=== PATIENT | female | born 2000 | race Caucasian/White ===

== ENCOUNTER 2019-07-28 01:03 | Inpatient (IN) | payer OTHER ==
[2019-07-28] MEDS ORDERED: Penicillin G Potassium 5,000,000 Unit Vial ONE (01:09)
[2019-07-28] MEDS ORDERED: Ondansetron 4 MG/2 ML SDV IV PRN (01:12)
[2019-07-28] MEDS ORDERED: Sodium Chloride 0.9% 10 ML Syringe FLUSH PRN (01:12)
[2019-07-28] MEDS ORDERED: Misoprostol 400 MCG (4 X 100 MCG TAB) RECTAL PRN (01:12)
[2019-07-28] MEDS ORDERED: Methylergonovine 0.2 MG/1 ML Amp IM PRN (01:12)
[2019-07-28] MEDS ORDERED: Lactated Ringers 500 ML IV ONE (01:12)
[2019-07-28] MEDS ORDERED: Penicillin G Potassium 5 MILLUNITS in Sodium Chloride 0.9% 100 ML IV ONE (01:12)
[2019-07-28] MEDS ORDERED: Tranexamic Acid 1,000 MG in Sodium Chloride 0.9% 100 ML IV PRN (01:12)
[2019-07-28] MEDS ORDERED: Lidocaine 1% 30 ML SDV INJECT PRN (01:12)
[2019-07-28] MEDS ORDERED: Carboprost Tromethamine 250 MCG/1 ML Amp IM PRN (01:12)
[2019-07-28] MEDS: Lactated Ringers 1,000 ML IV SCH ×3 (01:15→09:07)
[2019-07-28] MEDS ORDERED: Oxytocin/Normal Saline 30 UNIT/500 ML BAG IV SCH ×2 (01:15→09:45)
--- NOTE | 2019-07-28 01:22 | PCM.LDHP ---
L&D History of Present Illness - General Date of Service: 07/28/19 Admit Problem/Dx: Patient Status Order with Admit Dx/Problem 07/28/19 01:12 Patient Status [ADT] Routine Admission Diagnosis/Problem Admission Diagnosis/Problem Normal labor - History of Present Illness Introduction:: Subjective Patient is a 18yo at 40w0d gestation who presents today for uterine contractions. She has a past medical and obstetric history as below significant for GBS+, tobacco use during . Movements are present. Vaginal discharge is present, blood tinged. Contractions are every 3-5 minutes. She had good care. Past Obstetric History: -prior miscarriage at 12w GA Past Medical History: -rubella non immune status -tobacco use Past Surgical History: -no surgical hx Family History: -no pertinent family history Social History: -Works at [employer] in [place]. Engaged to [employer]. Renting a 2-bedroom apartment in [place] together. Medications Prior to Admission: - vitamins Allergies: -Tuberculin Review of Systems Constitutional: negative for chills and fevers HEENT: negative for vision changes, headache, nasal congestion, cough, sore throat Respiratory: negative for cough, sputum and shortness of breath Cardiovascular: negative for chest pain, chest pressure/discomfort, lower extremity edema and palpitations Gastrointestinal: + abdominal cramping and contractions, negative for epigastric pain, change in bowel habits, melena, nausea and vomiting Genitourinary: negative for dysuria, frequency and hematuria Integument/breast: negative for pruritus and rash Hematologic/lymphatic: negative for bleeding and easy bruising Objective: General: alert, cooperative, no distress Skin: no rash or abnormalities Lungs: clear to auscultation bilaterally Heart: regular rate, S1, S2 normal, no murmur, click, rub or gallop Abdomen: gravid, non-tender, non distended Extremities: no edema Cervix: per RN exam Dilation: 4 Effacement: 100 Station: -1 Presentation: vertex Membranes: intact Monitoring: FHT:135 BPM, moderate variability, accelerations are present, absent decelerations, cat 1 Contractions: 3 to 5 minutes. Ultrasound: Last Ultrasound (03/28/19): Placenta posterior, Presentation cephalic, TINO normal OB Labs: A+, rubella non immune, syphylis neg, HIV neg, HBV negative, GC negative Assessment 18y o at 40w0d IUP with GBS + status in normal labor Plan EFM/toco and monitor for progress of labor. Penicillin for GBS status AROM when 2nd dose of pitocin is in. Intrathecal analgesia as needed. Expectant management, anticipate vaginal delivery. Dahlia Wilson MD PGY-3 - Related Data Allergies/Adverse Reactions: Allergies Allergy/AdvReac Type Severity Reaction Status Date / Time No Known Drug Intolerances Allergy Other Verified 07/28/19 01:21 mold Allergy Nausea and Uncoded 07/28/19 01:21 Vomiting tb test Allergy Hives Uncoded 07/28/19 01:21 Home Medications: Home Meds Vit with Ca/FA/Iron [ Plus Iron] 1 tab PO DAILY 06/19/19 [ History] Past Medical History - Past Health History Medical/Surgical History: Denies Medical/Surgical History HEENT History: Reports: None Cardiovascular History: Reports: None Respiratory History: Reports: None Gastrointestinal History: Reports: None Genitourinary History: Reports: None 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: , 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 Other OB/BYN History: SAB 04/27/2018 Musculoskeletal History: Reports: None Neurological History: Reports: None Psychiatric History: Reports: None Endocrine/Metabolic History: Reports: None Hematologic History: Reports: None Immunologic History: Reports: None Oncologic (Cancer) History: Reports: None Dermatologic History: Reports: None - Infectious Disease History Infectious Disease History: Reports: None - Past Surgical History Head Surgeries/Procedures: Reports: None Cardiovascular Surgical History: Reports: None Respiratory Surgical History: Reports: None GI Surgical History: Reports: None Female Surgical History: Reports: None Neurological Surgical History: Reports: None Social & Family History - Family History Family Medical History: Noncontributory - Caffeine Use Caffeine Use: Reports: None H&P Review of Systems - Review of Systems: Review Of Systems: See Below L&D Exam - Exam Exam: See Below - Patient Data Result Diagrams: 07/28/19 01:21 - Problem List (1) Normal labor SNOMED Code(s): 11004435 ICD Code: O80 - ENCOUNTER FOR FULL-TERM UNCOMPLICATED DELIVERY; Z37.9 - OUTCOME OF DELIVERY, UNSPECIFIED Status: Acute Current Visit: Yes Problem List Initiated/Reviewed/Updated: Yes Orders Last 24hrs: Active Orders 24 hr Category Date Time Status Patient Status [ADT] Routine ADT 07/28/19 01:12 Ordered Communication Order [RC] ASDIRECTED Care 07/28/19 01:12 Ordered Heart Tones [RC] PER UNIT ROUTINE Care 07/28/19 01:12 Ordered Notify Provider Vital Signs OB [RC] ASDIRECTED Care 07/28/19 01:12 Ordered Notify Provider [RC] PRN Care 07/28/19 01:12 Ordered POC Labs [RC] ASDIRECTED Care 07/28/19 01:12 Ordered Pump Management, Intrathecal [RC] ASDIRECTED Care 07/28/19 01:12 Ordered Up ad Marcela [RC] ASDIRECTED Care 07/28/19 01:12 Ordered Vital Signs [RC] PER UNIT ROUTINE Care 07/28/19 01:12 Ordered CBC W/O DIFF,HEMOGRAM [HEME] Routine Lab 07/28/19 01:12 Ordered Acetaminophen [Tylenol] Med 07/28/19 01:12 Ordered 650 mg PO Q4H PRN Carboprost Tromethamine [Hemabate DS] Med 07/28/19 01:12 Ordered 250 mcg IM ASDIRECTED PRN Lactated Ringers @ 125 MLS/HR(1000ml) Med 07/28/19 01:15 Ordered Lactated Ringers [Ringers, Lactated] 1,000 ml IV ASDIRECTED Lactated Ringers [Ringers, Lactated] 500 ml Med 07/28/19 01:12 Ordered IV .BOLUS Lidocaine 1% [Xylocaine-MPF 1%] Med 07/28/19 01:12 Ordered 30 ml INJECT ASDIRECTED PRN Methylergonovine [Methergine] Med 07/28/19 01:12 Ordered 0.2 mg IM ASDIRECTED PRN Ondansetron [Zofran] Med 07/28/19 01:12 Ordered 4 mg IV Q4H PRN Oxytocin 30 Units in NS @ 2 MUNITS/MIN(500ml) Med 07/28/19 01:15 Ordered Oxytocin/Normal Saline [Pitocin in NS 30 UNIT/500 ML] 30 unit in 500 ml IV TITRATE Penicillin G Potassium [Pfizerpen] 3 millunits Med 07/28/19 05:00 Ordered Sodium Chloride 0.9% [Normal Saline] 100 ml IV Q4HR Penicillin G Potassium [Pfizerpen] 5 millunits Med 07/28/19 01:12 Ordered Sodium Chloride 0.9% [Normal Saline] 100 ml IV ONETIME Sodium Chloride 0.9% [Saline Flush] Med 07/28/19 01:12 Ordered 10 ml FLUSH ASDIRECTED PRN Tranexamic Acid [Cyklokapron] 1,000 mg Med 07/28/19 01:12 Ordered Sodium Chloride 0.9% [Normal Saline] 100 ml IV ONETIME miSOPROStol [Cytotec] Med 07/28/19 01:12 Ordered 800 mcg RECTAL ASDIRECTED PRN Saline Lock Insert [OM.PC] Routine Oth 07/28/19 01:12 Ordered Resuscitation Status Routine Resus Stat 07/28/19 01:12 Ordered Medication Orders Acetaminophen (Tylenol) 650 mg PO Q4H PRN PRN Reason: Pain (Mild 1-3) and fever Carboprost Tromethamine (Hemabate Ds) 250 mcg IM ASDIRECTED PRN PRN Reason: HEMORRHAGE Lactated Ringer's (Ringers, Lactated) 500 mls @ 999 mls/hr IV .BOLUS ONE Stop: 07/28/19 01:42 Lactated Ringer's (Ringers, Lactated) 1,000 mls @ 125 mls/hr IV ASDIRECTED OLINDA Oxytocin/Sodium Chloride (Pitocin In Ns 30 Unit/500 Ml) 30 unit in 500 mls @ 2 mls/hr IV TITRATE OLINDA; Protocol Penicillin G Potassium 5 (millunits/ Sodium Chloride) 100 mls @ 200 mls/hr IV ONETIME ONE Stop: 07/28/19 01:41 Penicillin G Potassium 3 (millunits/ Sodium Chloride) 100 mls @ 200 mls/hr IV Q4HR OLINDA Tranexamic Acid 1,000 mg/ (Sodium Chloride) 110 mls @ 660 mls/hr IV ONETIME PRN PRN Reason: Bleeding Lidocaine HCl (Xylocaine-Mpf 1%) 30 ml INJECT ASDIRECTED PRN PRN Reason: Perineal Repair Methylergonovine Maleate (Methergine) 0.2 mg IM ASDIRECTED PRN PRN Reason: Hemorrhage Misoprostol (Cytotec) 800 mcg RECTAL ASDIRECTED PRN PRN Reason: Hemorrhage Ondansetron HCl (Zofran) 4 mg IV Q4H PRN PRN Reason: Nausea/Vomiting Sodium Chloride (Saline Flush) 10 ml FLUSH ASDIRECTED PRN PRN Reason: Keep Vein Open
[2019-07-28] MEDS ORDERED: EPINEPHrine 1 MG/1 ML Amp ONE ×2 (03:41→08:36)
[2019-07-28] MEDS ORDERED: fentaNYL 100 MCG/2 ML SDV ONE ×2 (03:41→08:36)
[2019-07-28] MEDS ORDERED: Sodium Bicarbonate 4.2% 2.5 MEQ/5 ML SDV ONE ×2 (03:42→08:36)
--- NOTE | 2019-07-28 04:04 | PCM.SN ---
- Free Text/Narrative Note: Intrathecal , sittimg position, sterile prep and drape. 1% lidocaine w bicarb for skinwheal to L2 L3 interspace, introducer, 24 ga pencan x 1. Pos CSF, neg heme, neg parasthesia. 0.1 ml pf 1:1000 epi, 15 mcg pf sufenta, 35 mcg pf fentanyl, 0.4 ml pf ns and 6 mg of 0.75% pf bupivacaine injected after CSF aspiration. Pt to L lateral position. Procedure time 4470 to 0414
[2019-07-28] MEDS: Penicillin G Potassium 3 MILLUNITS in Sodium Chloride 0.9% 100 ML IV SCH ×4 (05:18→16:12)
--- NOTE | 2019-07-28 07:02 | PCM.SN ---
- Free Text/Narrative Note: Labor and Delivery Labor Progress Note S: Patient is comfortable with intrathecal in place. She denies any concerns. O: BP-107/67, P-72 Alert and oriented, NAD Cervix: 6/100/-1 EFM/toco: 130 BPM, moderate variability, accelerations are present,absent decelerations, cat 1 Contractions q 3-4 minutes A: 18 y.o. female at 40w0d admitted for normal labor P: AROM for clear fluid Continue current cares Plan was discussed with Dr. Brown The patient was comfortable with the above plan and all questions were answered. Dahlia Wislon MD PGY-3 [employer]
--- NOTE | 2019-07-28 08:51 | PCM.SN ---
- Free Text/Narrative Note: Intrathecal , sittimg position, sterile prep and drape. 1% lidocaine w bicarb for skinwheal to L2 L3 interspace, introducer, 24 ga pencan x 1. Pos CSF, neg heme, neg parasthesia. pf 1:1000 epi wash, 15 mcg pf sufenta, 35 mcg pf fentanyl, 0.4 ml pf ns and 6 mg of 0.75% pf bupivacaine injected after CSF aspiration. Pt to L lateral position. Procedure time 0830 to 0900
[2019-07-28] MEDS ORDERED: Measles, Mumps & Rubella Vaccine 0.5 ML SDV SUBCUT ONE (12:33)
[2019-07-28] MEDS ORDERED: Simethicone 80 MG Tab.Chew PO PRN (12:33)
[2019-07-28] MEDS ORDERED: Benzocaine/Menthol 20%-0.5% Spray 56 GM Canister TOP PRN (12:33)
--- NOTE | 2019-07-28 12:43 | PCM.DEL ---
L & D Note - General Info Date of Service: 07/28/19 Mother's Due Date: 07/28/19 - Delivery Note Labor: Augmented by Oxytocin Delivery Outcome: Livebirth Infant Delivery Method: Spontaneous Vaginal Delivery-Single Delivery Mode: Vacuum Extraction Presentation: Left Occiput Transverse (LOT) Nuchal Cord: None Anesthesia Type: Intrathecal Amniotic Fluid Description: Meconium Stained Episiotomy Type: None Laceration: 1st Degree Suture type: Vicryl Suture size: 4-0 Placenta: Intact, Spontaneous Cord: 3 Vessels Resuscitation Needed: Yes [place]: Suctioned, Bulb Syringe, Stimulated, Warmed, Warmer Used Provider: Leonie Saucedo Delivery Comments (Free Text/Narrative):: Diandra Hamilton is a 18 y.o. at 40w0d who presented with uterine contractions. Category 1 tracing on admission. She was dilated to 4 cm on admission. Her labor was augmented with pitocin. She requested and received intrathecal. Artifical rupture of membranes at 6 cm with clear fluid. She progressed to full cervical dilation. She delivered a liveborn female from the OT position, with the help of vacuum extraction due to maternal exhaustion over 1st degree perineal laceration in the midline. Infant was stunned and brought to warmer for resuscitation. she was suctioned twice and stimulated, also given blow by O2. She did improve with these measures and was able to be returned to mothers chest. Placenta delivered spontaneously intact with a 3 vessel cord. IV Pitocin was started shortly after delivery of placenta. EBL 200 mL. 1st degree perineal laceration repaired with 4-0 Vicryl suture. Hemostasis confirmed. Mother and doing well. - General Info Date of Service: 07/28/19 - Patient Data Vitals - Most Recent: Last Vital Signs Temp 98.6 F 07/28/19 05:30 Pulse 79 07/28/19 06:45 Resp 18 07/28/19 06:45 BP 125/72 07/28/19 06:45 Pulse Ox 98 07/28/19 05:30 Weight - Most Recent: 215 lb Lab Results Last 24 Hours: Laboratory Results - last 24 hr 07/28/19 Range/Units 01:21 WBC 15.7 H (5.0-10.0) 10^3/uL RBC 4.53 (4.2-5.4) 10^6/uL Hgb 12.7 (12.0-16.0) g/dL Hct 38.3 (37.0-47.0) % MCV 84.5 (80-100) fL MCH 28.0 (27.0-34.0) pg MCHC 33.2 (33.0-35.0) g/dL Plt Count 234 (150-450) 10^3/uL Med Orders - Current: Current Medications Acetaminophen (Tylenol) 650 mg PO Q4H PRN PRN Reason: Pain (Mild 1-3) and fever Carboprost Tromethamine (Hemabate Ds) 250 mcg IM ASDIRECTED PRN PRN Reason: HEMORRHAGE Lactated Ringer's (Ringers, Lactated) 1,000 mls @ 125 mls/hr IV ASDIRECTED [facility] Last Admin: 07/28/19 09:07 Dose: 125 mls/hr Tranexamic Acid 1,000 mg/ (Sodium Chloride) 110 mls @ 660 mls/hr IV ONETIME PRN PRN Reason: Bleeding Penicillin G Potassium 3 (millunits/ Sodium Chloride) 100 mls @ 200 mls/hr IV Q4H [facility] Last Admin: 07/28/19 09:06 Dose: 200 mls/hr Oxytocin/Sodium Chloride (Pitocin In Ns 30 Unit/500 Ml) 30 unit in 500 mls @ 2 mls/hr IV TITRATE [facility]; Protocol Last Admin: 07/28/19 07:38 Dose: 2 munits/min, 2 mls/hr Lidocaine HCl (Xylocaine-Mpf 1%) 30 ml INJECT ASDIRECTED PRN PRN Reason: Perineal Repair Methylergonovine Maleate (Methergine) 0.2 mg IM ASDIRECTED PRN PRN Reason: Hemorrhage Misoprostol (Cytotec) 800 mcg RECTAL ASDIRECTED PRN PRN Reason: Hemorrhage Ondansetron HCl (Zofran) 4 mg IV Q4H PRN PRN Reason: Nausea/Vomiting Last Admin: 07/28/19 03:25 Dose: 4 mg Sodium Chloride (Saline Flush) 10 ml FLUSH ASDIRECTED PRN PRN Reason: Keep Vein Open Discontinued Medications Epinephrine HCl (Adrenalin) Confirm Administered Dose 1 mg .ROUTE .[facility]-MED ONE Stop: 07/28/19 03:42 Last Admin: 07/28/19 05:57 Dose: Not Given Epinephrine HCl (Adrenalin) Confirm Administered Dose 1 mg .ROUTE .STK-MED ONE Stop: 07/28/19 08:37 Last Admin: 07/28/19 08:40 Dose: Not Given Fentanyl (Sublimaze) Confirm Administered Dose 100 mcg .ROUTE .STK-MED ONE Stop: 07/28/19 03:42 Last Admin: 07/28/19 05:57 Dose: Not Given Fentanyl (Sublimaze) Confirm Administered Dose 100 mcg .ROUTE .STK-MED ONE Stop: 07/28/19 08:37 Last Admin: 07/28/19 08:40 Dose: Not Given Lactated Ringer's (Ringers, Lactated) 500 mls @ 999 mls/hr IV .BOLUS ONE Stop: 07/28/19 01:42 Oxytocin/Sodium Chloride (Pitocin In Ns 30 Unit/500 Ml) 30 unit in 500 mls @ 2 mls/hr IV TITRATE OLINDA; Protocol Penicillin G Potassium 5 (millunits/ Sodium Chloride) 100 mls @ 200 mls/hr IV ONETIME ONE Stop: 07/28/19 01:41 Last Admin: 07/28/19 01:15 Dose: 200 mls/hr Penicillin G Potassium 3 (millunits/ Sodium Chloride) 100 mls @ 200 mls/hr IV Q4HR OLINDA Last Admin: 07/28/19 08:52 Dose: Not Given Penicillin G Potassium (Pfizerpen) Confirm Administered Dose 5 millunits .ROUTE .STK-MED ONE Stop: 07/28/19 01:10 Last Admin: 07/28/19 01:22 Dose: Not Given Sodium Bicarbonate (Sodium Bicarbonate 4.2%) Confirm Administered Dose 2.5 meq .ROUTE .STK-MED ONE Stop: 07/28/19 03:43 Last Admin: 07/28/19 05:58 Dose: Not Given Sodium Bicarbonate (Sodium Bicarbonate 4.2%) Confirm Administered Dose 2.5 meq .ROUTE .STK-MED ONE Stop: 07/28/19 08:37 Last Admin: 07/28/19 08:40 Dose: Not Given Sufentanil Citrate (Sufenta) Confirm Administered Dose 50 mcg .ROUTE .STK-MED ONE Stop: 07/28/19 03:42 Last Admin: 07/28/19 05:58 Dose: Not Given Sufentanil Citrate (Sufenta) Confirm Administered Dose 50 mcg .ROUTE .STK-MED ONE Stop: 07/28/19 08:37 Last Admin: 07/28/19 08:40 Dose: Not Given - Problem List & Annotations (1) Normal labor SNOMED Code(s): 94878244 Code(s): O80 - ENCOUNTER FOR FULL-TERM UNCOMPLICATED DELIVERY; Z37.9 - OUTCOME OF DELIVERY, UNSPECIFIED Status: Acute Current Visit: Yes - Problem List Review Problem List Initiated/Reviewed/Updated: Yes - My Orders Last 24 Hours: My Active Orders 07/28/19 01:12 Patient Status [ADT] Routine Communication Order [RC] ASDIRECTED Notify Provider Vital Signs OB [RC] ASDIRECTED Notify Provider [RC] PRN POC Labs [RC] ASDIRECTED Pump Management, Intrathecal [RC] ASDIRECTED Up ad Marcela [RC] ASDIRECTED Vital Signs [RC] PER UNIT ROUTINE Acetaminophen [Tylenol] 650 mg PO Q4H PRN Carboprost Tromethamine [Hemabate DS] 250 mcg IM ASDIRECTED PRN Lidocaine 1% [Xylocaine-MPF 1%] 30 ml INJECT ASDIRECTED PRN Methylergonovine [Methergine] 0.2 mg IM ASDIRECTED PRN Ondansetron [Zofran] 4 mg IV Q4H PRN Sodium Chloride 0.9% [Saline Flush] 10 ml FLUSH ASDIRECTED PRN Tranexamic Acid [Cyklokapron] 1,000 mg Sodium Chloride 0.9% [Normal Saline] 100 ml IV ONETIME miSOPROStol [Cytotec] 800 mcg RECTAL ASDIRECTED PRN Saline Lock Insert [OM.PC] Routine Resuscitation Status Routine 07/28/19 01:15 Lactated Ringers [Ringers, Lactated] 1,000 ml IV ASDIRECTED 07/28/19 09:00 Penicillin G Potassium [Pfizerpen] 3 millunits Sodium Chloride 0.9% [Normal Saline] 100 ml IV Q4H
[2019-07-28] MEDS: Ibuprofen 800 MG Tab PO PRN ×2 (15:16→23:26)
[2019-07-28] MEDS: Acetaminophen 325 MG Tab PO PRN (19:35)
[2019-07-28] MEDS: Docusate Sodium 100 MG Cap PO PRN (19:35)
[2019-07-29] MEDS: Docusate Sodium 100 MG Cap PO PRN ×2 (10:09→19:25)
[2019-07-29] MEDS: Ibuprofen 800 MG Tab PO PRN ×2 (10:09→19:24)
[2019-07-29] MEDS: Prenatal Multivitamin with Calcium/Folic Acid/Iron Tab PO SCH (10:09)
[2019-07-29] MEDS: Ferrous Sulfate 325 MG Tab PO SCH (10:11)
--- NOTE | 2019-07-29 11:37 | PCM.PNPP ---
- General Info Date of Service: 07/29/19 - Patient Data Vital Signs - Most Recent: Last Vital Signs Temp 98.6 F 07/28/19 20:00 Pulse 131 H 07/28/19 20:00 Resp 18 07/28/19 20:00 BP 131/68 07/28/19 20:00 Pulse Ox 99 07/28/19 20:00 Weight - Most Recent: 215 lb Med Orders - Current: Current Medications Acetaminophen (Tylenol) 650 mg PO Q4H PRN PRN Reason: Pain (Mild 1-3) and fever Last Admin: 07/28/19 19:35 Dose: 650 mg Benzocaine/Menthol (Dermoplast Pain Relief [place]) 0 gm TOP Q4H PRN PRN Reason: Perineal comfort measures Last Admin: 07/28/19 15:16 Dose: 1 spray Carboprost Tromethamine (Hemabate Ds) 250 mcg IM ASDIRECTED PRN PRN Reason: HEMORRHAGE Docusate Sodium (Colace) 100 mg PO BID PRN PRN Reason: Constipation Last Admin: 07/29/19 10:09 Dose: 100 mg Ferrous Sulfate (Ferrous Sulfate) 325 mg PO WITHBREAKFAST OLINDA Last Admin: 07/29/19 10:11 Dose: 325 mg Tranexamic Acid 1,000 mg/ (Sodium Chloride) 110 mls @ 660 mls/hr IV ONETIME PRN PRN Reason: Bleeding Oxytocin/Sodium Chloride (Pitocin In Ns 30 Unit/500 Ml) 30 unit in 500 mls @ 2 mls/hr IV TITRATE OLINDA; Protocol Last Titration: 07/28/19 15:00 Dose: 0 mls/hr Ibuprofen (Motrin) 800 mg PO Q8H PRN PRN Reason: Mild Pain or Fever Last Admin: 07/29/19 10:09 Dose: 800 mg Methylergonovine Maleate (Methergine) 0.2 mg IM ASDIRECTED PRN PRN Reason: Hemorrhage Misoprostol (Cytotec) 800 mcg RECTAL ASDIRECTED PRN PRN Reason: Hemorrhage Ondansetron HCl (Zofran) 4 mg IV Q4H PRN PRN Reason: Nausea/Vomiting Last Admin: 07/28/19 03:25 Dose: 4 mg Prenat Multivit/[place]lderon/Iron/Folic Ac ( Plus Iron) 1 each PO DAILY OLINDA Last Admin: 07/29/19 10:09 Dose: 1 each Simethicone (Simethicone) 80 mg PO Q4H PRN PRN Reason: Gas Sodium Chloride (Saline Flush) 10 ml FLUSH ASDIRECTED PRN PRN Reason: Keep Vein Open Discontinued Medications Epinephrine HCl (Adrenalin) Confirm Administered Dose 1 mg .ROUTE .STK-MED ONE Stop: 07/28/19 03:42 Last Admin: 07/28/19 05:57 Dose: Not Given Epinephrine HCl (Adrenalin) Confirm Administered Dose 1 mg .ROUTE .STK-MED ONE Stop: 07/28/19 08:37 Last Admin: 07/28/19 08:40 Dose: Not Given Fentanyl (Sublimaze) Confirm Administered Dose 100 mcg .ROUTE .STK-MED ONE Stop: 07/28/19 03:42 Last Admin: 07/28/19 05:57 Dose: Not Given Fentanyl (Sublimaze) Confirm Administered Dose 100 mcg .ROUTE .STK-MED ONE Stop: 07/28/19 08:37 Last Admin: 07/28/19 08:40 Dose: Not Given Lactated Ringer's (Ringers, Lactated) 500 mls @ 999 mls/hr IV .BOLUS ONE Stop: 07/28/19 01:42 Last Admin: 07/28/19 16:12 Dose: Not Given Lactated Ringer's (Ringers, Lactated) 1,000 mls @ 125 mls/hr IV ASDIRECTED OLINDA Last Admin: 07/28/19 09:07 Dose: 125 mls/hr Oxytocin/Sodium Chloride (Pitocin In Ns 30 Unit/500 Ml) 30 unit in 500 mls @ 2 mls/hr IV TITRATE OLINDA; Protocol Penicillin G Potassium 5 (millunits/ Sodium Chloride) 100 mls @ 200 mls/hr IV ONETIME ONE Stop: 07/28/19 01:41 Last Admin: 07/28/19 01:15 Dose: 200 mls/hr Penicillin G Potassium 3 (millunits/ Sodium Chloride) 100 mls @ 200 mls/hr IV Q4HR [facility] Last Admin: 07/28/19 08:52 Dose: Not Given Penicillin G Potassium 3 (millunits/ Sodium Chloride) 100 mls @ 200 mls/hr IV Q4H [facility] Last Admin: 07/28/19 16:12 Dose: Not Given Lidocaine HCl (Xylocaine-Mpf 1%) 30 ml INJECT ASDIRECTED PRN PRN Reason: Perineal Repair Measles/Mumps/Rubella Vaccine Live (M-M-R Ii Vaccine) 0.5 ml SUBCUT .ONCE ONE Stop: 07/28/19 12:34 Last Admin: 07/28/19 19:36 Dose: 0.5 ml Penicillin G Potassium (Pfizerpen) Confirm Administered Dose 5 millunits .ROUTE .STK-MED ONE Stop: 07/28/19 01:10 Last Admin: 07/28/19 01:22 Dose: Not Given Sodium Bicarbonate (Sodium Bicarbonate 4.2%) Confirm Administered Dose 2.5 meq .ROUTE .STK-MED ONE Stop: 07/28/19 03:43 Last Admin: 07/28/19 05:58 Dose: Not Given Sodium Bicarbonate (Sodium Bicarbonate 4.2%) Confirm Administered Dose 2.5 meq .ROUTE .STK-MED ONE Stop: 07/28/19 08:37 Last Admin: 07/28/19 08:40 Dose: Not Given Sufentanil Citrate (Sufenta) Confirm Administered Dose 50 mcg .ROUTE .STK-MED ONE Stop: 07/28/19 03:42 Last Admin: 07/28/19 05:58 Dose: Not Given Sufentanil Citrate (Sufenta) Confirm Administered Dose 50 mcg .ROUTE .STK-MED ONE Stop: 07/28/19 08:37 Last Admin: 07/28/19 08:40 Dose: Not Given - Infant Interaction Support Person: Significant Other - Recovery Exam Fundal Tone: Firm Fundal Level: 1 Fingerbreadths Below Umbilicus Fundal Placement: Midline Lochia Amount: Scant Lochia Color: Rubra/Red Perineum Description: Intact, Minimal Bruising/Swelling Episiotomy/Laceration: Approximated Bladder Status: Voiding - Problem List & Annotations (1) Normal labor SNOMED Code(s): 73502475 Code(s): O80 - ENCOUNTER FOR FULL-TERM UNCOMPLICATED DELIVERY; Z37.9 - OUTCOME OF DELIVERY, UNSPECIFIED Status: Acute Current Visit: Yes
--- NOTE | 2019-07-29 13:14 | PCM.SN ---
- Free Text/Narrative Note: Obstetrics Progress Note Post Day Number 1 Patient: Diandra Hamilton Admit Date: 07/27/19 Today's Date: 07/29/19 Subjective: Diandra Hamilton is ambulating, voiding, tolerating regular diet all without difficulty. She reports her lochia is moderate. She is . She is up and ambulating well, tolerating PO intake and using the bathroom, good bowel sounds and passing gas, no bowel movement at this time. She has no complaints. Objective: Last Vital Signs Temp 98.6 F 07/28/19 20:00 Pulse 131 H 07/28/19 20:00 Resp 18 07/28/19 20:00 BP 131/68 07/28/19 20:00 Pulse Ox 99 07/28/19 20:00 General: alert, no distress Lungs: CTAB, no respiratory distress Heart: RRR, no murmurs Uterus is firm non tender at 1 cm below the umbilicus. Lower extremities are nontender and have trace edema. Skin: is warm and dry, well perfused no visible lesions RPR: nonreactive Rubella: not immune GBS: positive Hbs: negative Assessment/Plan: Patient is stable and comfortable, no acute distress. She is day number one status post VAVD. Continue with advancing routine post cares. Plan for discharge tomorrow Dahlia Wilson MD
[2019-07-30] MEDS: Ibuprofen 800 MG Tab PO PRN (03:07)
[2019-07-30] MEDS: Ferrous Sulfate 325 MG Tab PO SCH (08:19)
[2019-07-30] MEDS: Prenatal Multivitamin with Calcium/Folic Acid/Iron Tab PO SCH (08:19)
[2019-07-30] MEDS: Acetaminophen 325 MG Tab PO PRN (08:19)
--- NOTE | 2019-07-30 08:39 | PCM.DCSUM1 ---
Discharge Summary - Hospital Course Free Text/Narrative:: Admission Diagnoses: Normal Labor at 40w0d Summary of Hospital Course: Diandra Hamilton is a 18 year old female at 40w0d who presented to labor and delivery on 07/28/19. She underwent a vacuum assisted vaginal delivery and delivered a viable female weighing 2964 grams with Apgars of 5 and 7 at 1 and 5 minutes respectively. EBL was 200 mL. Patient had unremarkable course. By postoperative day number 2 pt was doing well, ambulating, voiding, and tolerating general diet without difficulty. Pain was well controlled with OTC narcotic pain medications. Hence she was discharged to home. Blood type: A+, Rubella non immune. control to be discussed . Discharge Exam: General: alert, in no acute distress Lungs: clear to auscultation bilaterally Heart: regular rate and rhythm, normal S1 S2, no murmurs Abdomen: soft, nontender, nondistended, bowel sounds present Uterus: firm, nontender at 1 cm below the umbilicus. Lower extremities are nontender and have trace edema. Skin: is warm and dry, well perfused no visible lesion Discharge (or Final) Diagnoses: 1. Status post Intrauterine at 40w0d 2. VAVD on 07/28/19 Discharge Details: Admission Condition: good Discharged Condition: good Disposition: Home Diet: regular diet Activity: pelvic rest for 6 weeks. She was instructed to seek medical attention for fever>100.4, or heavy vaginal bleeding. Follow-up with Dr. Brown in 6 weeks for visit. Diagnosis: Stroke: No - Discharge Data Discharge Date: 07/30/19 Discharge Disposition: Home, Self-Care 01 Condition: Good - Referral to Home Health Primary Care Physician: Leonie Saucedo MD - Discharge Diagnosis/Problem(s) (1) Normal labor SNOMED Code(s): 05461234 ICD Code: O80 - ENCOUNTER FOR FULL-TERM UNCOMPLICATED DELIVERY; Z37.9 - OUTCOME OF DELIVERY, UNSPECIFIED Status: Acute Current Visit: Yes - Patient Summary/Data Consults: Consultations 07/28/19 12:33 Consult to [employer] [CONS] Routine - Patient Instructions Diet: Usual Diet as Tolerated Activity: No Lifting Over 25 Pounds, No Strenuous Activities (Pelvic rest for 6 weeks.) Driving: May Drive Today Showering/Bathing: May Shower Notify Provider of: Fever, Increased Pain, Swelling and Redness, Drainage, Nausea and/or Vomiting Other/Special Instructions: Routine instructions for breast feeindg mother post vaginal delivery. - Discharge Plan *PRESCRIPTION DRUG MONITORING PROGRAM REVIEWED*: Not Applicable *COPY OF PRESCRIPTION DRUG MONITORING REPORT IN PATIENT COREY: Not Applicable Home Medications: Home Meds Vit with Ca/FA/Iron [ Plus Iron] 1 tab PO DAILY 06/19/19 [ History] Acetaminophen [Tylenol] 650 mg PO Q4H PRN tablet 07/30/19 [Rx] Docusate Sodium [Colace] 100 mg PO BID PRN cap 07/30/19 [Rx] Ferrous Sulfate 325 mg PO WITHBREAKFAST tablet 07/30/19 [Rx] Ibuprofen [Motrin] 800 mg PO Q8H PRN tablet 07/30/19 [Rx] Patient Handouts: Home Care Instructions for Mom, Care of a Perineal Tear Referrals: Leonie Urena MD [Primary Care Provider] - (Will make 6-8 week post visit when you come with baby Aug 01. ) - Discharge Summary/Plan Comment DC Time >30 min.: Yes - Patient Data Vitals - Most Recent: Last Vital Signs Temp 97.8 F 07/30/19 08:00 Pulse 103 H 07/30/19 08:00 Resp 16 07/30/19 08:00 BP 120/72 07/30/19 08:00 Pulse Ox 99 07/29/19 19:22 Weight - Most Recent: 215 lb Med Orders - Current: Current Medications Acetaminophen (Tylenol) 650 mg PO Q4H PRN PRN Reason: Pain (Mild 1-3) and fever Last Admin: 07/30/19 08:19 Dose: 650 mg Benzocaine/Menthol (Dermoplast Pain Relief [place]) 0 gm TOP Q4H PRN PRN Reason: Perineal comfort measures Last Admin: 07/28/19 15:16 Dose: 1 spray Carboprost Tromethamine (Hemabate Ds) 250 mcg IM ASDIRECTED PRN PRN Reason: HEMORRHAGE Docusate Sodium (Colace) 100 mg PO BID PRN PRN Reason: Constipation Last Admin: 07/29/19 19:25 Dose: 100 mg Ferrous Sulfate (Ferrous Sulfate) 325 mg PO WITHBREAKFAST OLINDA Last Admin: 07/30/19 08:19 Dose: 325 mg Tranexamic Acid 1,000 mg/ (Sodium Chloride) 110 mls @ 660 mls/hr IV ONETIME PRN PRN Reason: Bleeding Oxytocin/Sodium Chloride (Pitocin In Ns 30 Unit/500 Ml) 30 unit in 500 mls @ 2 mls/hr IV TITRATE OLINDA; Protocol Last Titration: 07/28/19 15:00 Dose: 0 mls/hr Ibuprofen (Motrin) 800 mg PO Q8H PRN PRN Reason: Mild Pain or Fever Last Admin: 07/30/19 03:07 Dose: 800 mg Methylergonovine Maleate (Methergine) 0.2 mg IM ASDIRECTED PRN PRN Reason: Hemorrhage Misoprostol (Cytotec) 800 mcg RECTAL ASDIRECTED PRN PRN Reason: Hemorrhage Ondansetron HCl (Zofran) 4 mg IV Q4H PRN PRN Reason: Nausea/Vomiting Last Admin: 07/28/19 03:25 Dose: 4 mg Prenat Multivit/[facility]red/Iron/Folic Ac ( Plus Iron) 1 each PO DAILY OLINDA Last Admin: 07/30/19 08:19 Dose: 1 each Simethicone (Simethicone) 80 mg PO Q4H PRN PRN Reason: Gas Sodium Chloride (Saline Flush) 10 ml FLUSH ASDIRECTED PRN PRN Reason: Keep Vein Open Discontinued Medications Epinephrine HCl (Adrenalin) Confirm Administered Dose 1 mg .ROUTE .STK-MED ONE Stop: 07/28/19 03:42 Last Admin: 07/28/19 05:57 Dose: Not Given Epinephrine HCl (Adrenalin) Confirm Administered Dose 1 mg .ROUTE .STK-MED ONE Stop: 07/28/19 08:37 Last Admin: 07/28/19 08:40 Dose: Not Given Fentanyl (Sublimaze) Confirm Administered Dose 100 mcg .ROUTE .STK-MED ONE Stop: 07/28/19 03:42 Last Admin: 07/28/19 05:57 Dose: Not Given Fentanyl (Sublimaze) Confirm Administered Dose 100 mcg .ROUTE .STK-MED ONE Stop: 07/28/19 08:37 Last Admin: 07/28/19 08:40 Dose: Not Given Lactated Ringer's (Ringers, Lactated) 500 mls @ 999 mls/hr IV .BOLUS ONE Stop: 07/28/19 01:42 Last Admin: 07/28/19 16:12 Dose: Not Given Lactated Ringer's (Ringers, Lactated) 1,000 mls @ 125 mls/hr IV ASDIRECTED OLINDA Last Admin: 07/28/19 09:07 Dose: 125 mls/hr Oxytocin/Sodium Chloride (Pitocin In Ns 30 Unit/500 Ml) 30 unit in 500 mls @ 2 mls/hr IV TITRATE OLINDA; Protocol Penicillin G Potassium 5 (millunits/ Sodium Chloride) 100 mls @ 200 mls/hr IV ONETIME ONE Stop: 07/28/19 01:41 Last Admin: 07/28/19 01:15 Dose: 200 mls/hr Penicillin G Potassium 3 (millunits/ Sodium Chloride) 100 mls @ 200 mls/hr IV Q4HR [facility] Last Admin: 07/28/19 08:52 Dose: Not Given Penicillin G Potassium 3 (millunits/ Sodium Chloride) 100 mls @ 200 mls/hr IV Q4H [facility] Last Admin: 07/28/19 16:12 Dose: Not Given Lidocaine HCl (Xylocaine-Mpf 1%) 30 ml INJECT ASDIRECTED PRN PRN Reason: Perineal Repair Measles/Mumps/Rubella Vaccine Live (M-M-R Ii Vaccine) 0.5 ml SUBCUT .ONCE ONE Stop: 07/28/19 12:34 Last Admin: 07/28/19 19:36 Dose: 0.5 ml Penicillin G Potassium (Pfizerpen) Confirm Administered Dose 5 millunits .ROUTE .STK-MED ONE Stop: 07/28/19 01:10 Last Admin: 07/28/19 01:22 Dose: Not Given Sodium Bicarbonate (Sodium Bicarbonate 4.2%) Confirm Administered Dose 2.5 meq .ROUTE .STK-MED ONE Stop: 07/28/19 03:43 Last Admin: 07/28/19 05:58 Dose: Not Given Sodium Bicarbonate (Sodium Bicarbonate 4.2%) Confirm Administered Dose 2.5 meq .ROUTE .STK-MED ONE Stop: 07/28/19 08:37 Last Admin: 07/28/19 08:40 Dose: Not Given Sufentanil Citrate (Sufenta) Confirm Administered Dose 50 mcg .ROUTE .STK-MED ONE Stop: 07/28/19 03:42 Last Admin: 07/28/19 05:58 Dose: Not Given Sufentanil Citrate (Sufenta) Confirm Administered Dose 50 mcg .ROUTE .[facility] ONE Stop: 07/28/19 08:37 Last Admin: 07/28/19 08:40 Dose: Not Given
== END 2019-07-30 18:15 | disposition home or self-care (01) | DRG 807 ==
LOC: DL.OBCHECK 01:03 → UNDOADMOB 01:12 → DL.OB 01:12 → UNDOADMOB 10:28 → OBSVTOIN 11:37 → INTOOBSV 11:37 → OBSVTOIN 12:14 → DL.OB 12:14
PROVIDERS: ADMIT Family Medicine; ATTEND Family Medicine
PROC: 10E0XZZ Delivery of Products of Conception, External Approach (ICD-10-PCS; principal; 2019-07-28)
PROC: 10907ZC Drainage of Amniotic Fluid, Therapeutic from Products of Conception, Via Natural or Artificial Opening (ICD-10-PCS; 2019-07-28)
PROC: 0HQ9XZZ Repair Perineum Skin, External Approach (ICD-10-PCS; 2019-07-28)
PROC: 3E0234Z Introduction of Serum, Toxoid and Vaccine into Muscle, Percutaneous Approach (ICD-10-PCS; 2019-07-28)
DX: O48.0 Post-term pregnancy (principal); Z37.0 Single live birth; O99.824 Streptococcus B carrier state complicating childbirth; O70.0 First degree perineal laceration during delivery; Z3A.40 40 weeks gestation of pregnancy; Z88.8 Allergy status to other drugs, medicaments and biological substances; Z23 Encounter for immunization
CPT/HCPCS: 36415; 51701; 59409; 85027; 90471; 90707; A9270-GY; J2405; J2540; J2590; J7050; J7120

== ENCOUNTER 2020-11-26 03:08 | Inpatient (IN) | payer OTHER ==
[2020-11-26] MEDS ORDERED: Famotidine 20 MG Tab PO PRN (05:06)
[2020-11-26] MEDS ORDERED: Lactated Ringers 1,000 ML IV ONE (05:06)
[2020-11-26] MEDS ORDERED: Tranexamic Acid 1,000 MG in Sodium Chloride 0.9% 100 ML IV PRN ×2 (05:06→15:50)
[2020-11-26] MEDS ORDERED: Methylergonovine 0.2 MG/1 ML Amp IM PRN (05:06)
[2020-11-26] MEDS ORDERED: Acetaminophen 325 MG Tab PO PRN ×3 (05:06→15:50)
[2020-11-26] MEDS ORDERED: Butorphanol 2 MG/ML SDV IVPUSH PRN (05:06)
[2020-11-26] MEDS ORDERED: Lidocaine 1% 30 ML SDV INJECT PRN (05:06)
[2020-11-26] MEDS ORDERED: fentaNYL 100 MCG/2 ML SDV IVPUSH PRN (05:06)
[2020-11-26] MEDS ORDERED: Sodium Chloride 0.9% 10 ML Syringe FLUSH PRN ×2 (05:06→15:50)
[2020-11-26] MEDS ORDERED: Carboprost Tromethamine 250 MCG/1 ML Amp IM PRN ×2 (05:06→15:50)
[2020-11-26] MEDS ORDERED: Misoprostol 400 MCG (4 X 100 MCG TAB) RECTAL PRN ×2 (05:06→15:50)
[2020-11-26] MEDS ORDERED: Calcium Carbonate 500 MG Tab.Chew PO PRN (05:06)
[2020-11-26] MEDS ORDERED: Lactated Ringers 1,000 ML IV SCH (05:15)
[2020-11-26] MEDS ORDERED: Oxytocin/Normal Saline 30 UNIT/500 ML BAG IV SCH (05:15)
[2020-11-26] MEDS: Ondansetron 4 MG/2 ML SDV IVPUSH PRN ×2 (06:00→11:27)
--- NOTE | 2020-11-26 06:48 | PCM.PRNOTE ---
- Free Text/Narrative Note: Requested to provide analgesia to full term patient in severe pain. Upon entering the room, patient is sitting on edge of bed complaining of severe abdominal/pelvic pain and discomfort. Procedure was discussed with patient including adverse outcomes and expectations. Pt consented to analgesia, SAB/IT. Pt placed into a proper sitting position. Landmarks for SAB/IT were identified and marked. Hands were washed and appropriate PPE was applied. Back was prepped with betadine x3. A sterile, transparent, fenestrated drape was applied. Excess betadine was removed. Using 3 mL of a 1% lidocaine solution, a skin wheel was placed at the L2/L3 interspace. A 24 ga (4 inch) Pencan spinal needle was inserted until positive for CSF. Negative for heme or paresthesias. Injected sufentanil 25 mcg, and 6.75 mg of a 0.75% bupivacaine solution with an epi wash. Pt was placed left lateral tilt position for approximately 20 minutes. There were zero complications or adverse outcomes. Will continue to monitor. Procedure Date & Time: 11/26/20
[2020-11-26] MEDS: Oxytocin/Normal Saline 30 UNIT/500 ML BAG IV SCH ×2 (07:15→17:15)
[2020-11-26] MEDS: Lactated Ringers 1,000 ML IV SCH ×2 (08:44→11:45)
--- NOTE | 2020-11-26 09:44 | HP ---
PRIMARY OB PROVIDER: Leonie Saucedo MD. HISTORY OF PRESENT ILLNESS/CHIEF COMPLAINT: Diandra is a 20-year-old G3, P1-0-1- 1 at 39 weeks and 3 days gestational age dated by LMP, presenting to Labor and Delivery for spontaneous rupture of membranes. She notes that around 2:30, she felt a pop and a small amount of leakage of clear fluid. They packed up their stuff to come and when she got into the truck she then felt a large gush of clear fluid. She continues to have regular contractions every 3 to 4 minutes. She has good movement. She has not had any vaginal bleeding. OBSTETRIC HISTORY: G1: 04/19/2019, 6 weeks 0 days spontaneous . G2: 05/28/2019, 40 weeks and 0 days, spontaneous vaginal delivery of a female, 6 pounds 8 ounces. Had intrathecal anesthesia. GYNECOLOGIC HISTORY: Denies any history of HSV. LABS: Blood group is A positive, antibody negative. Serology for RPR is nonreactive. Hepatitis B surface antigen is nonreactive. Hepatitis C antibody is nonreactive. HIV is negative. Gonorrhea and chlamydia both negative. GBS was negative. Tdap was given on 09/07/2020. PAST MEDICAL HISTORY: Obesity, nicotine dependence. SURGICAL HISTORY: None. FAMILY HISTORY: The patient is adopted. Negative family history for cystic fibrosis, seizures, anesthesia problems, bleeding and clotting disorders, defects, multiple sclerosis, multiple births. MEDICATIONS PRIOR TO ADMISSION: 1. vitamins. 2. Hydroxyzine 25 mg q.i.d. as needed for anxiety and itching. 3. Iron supplements b.i.d. 4. Vitamin C. ALLERGIES: Patient has no known drug allergies. SOCIAL HISTORY: The patient currently smokes approximately 3 cigarettes per day. Denies alcohol use. Denies drug use. REVIEW OF SYSTEMS: General: Patient denies any fevers, chills. Dermatologic: Patient denies any rashes, itching, skin lesions. Respiratory: The patient denies any shortness of breath, wheezing, cough. Cardiovascular: Patient denies any chest pain, palpitation. Gastrointestinal: Patient denies any nausea, vomiting, abdominal pain other than contractions, constipation, diarrhea. : Patient denies any increased frequency, hematuria, or dysuria. Neuromuscular: Patient denies any paresthesias, weakness, myalgias. PHYSICAL EXAMINATION: Admission Vitals: Please see vital signs per [facility] record. General Appearance: The patient is alert, well appearing, in no apparent distress. The patient has to breath through contractions. Lungs: Clear to auscultation bilaterally, no wheeze, rale, or rhonchi, symmetric air entry. Heart: Regular rate and rhythm. No murmur. Abdomen: Gravid, nontender to palpation. heart tones: Category 1, baseline 125, moderate variability, positive accelerations, negative decelerations. [place]: Contractions every 3 to 4 minutes. Pelvic: Normal external genitalia, vulva, and vagina. SVE: 5 cm dilated, 80% effaced, -2 station, bag is spontaneously ruptured, clear fluid. Extremities: No redness or tenderness in the calves, upper thighs. No edema. Skin: Normal coloration, turgor, no rashes. ASSESSMENT AND PLAN: Diandra is a G3, P1-0-1-1 at 39 weeks and 3 days gestational age (dated by LMP) presenting for spontaneous rupture of membranes. 1. Maternal well-being: Good. 2. well-being: heart tracing category 1. 3. Labor: Spontaneous rupture of membranes. We will augument with Pitocin. 4. Group B Streptococcus status negative. Plan: No antibiotics in labor. 5. Pain management: The patient is planning for intrathecal. 6. Tobacco use in . Most recent ultrasound on 10/19/2020 the patient's EFW was 54 percentile. 7. Anemia of . Hemoglobin on 11/16/2020 was 11.9. The patient is on iron supplement b.i.d. with vitamin C and vitamin. Clinically asymptomatic. 8. Growth ultrasound at 20 weeks and 5 days did not show anatomy of upper lip well. Repeat ultrasound was concerning for cleft lip. The patient was referred to [facility]. Repeat ultrasound showed normal anatomy with no cleft lip or palate. Normal echocardiogram. 9. History of depression. Depression was treated with Zoloft after #2. Her brother had just of suicide while in the hospital for delivery. We will monitor for any signs of depression. 10.Elevated blood pressure affecting . On 10/17/2020, blood pressures were 140s/90s on presentation. -induced hypertension labs were within normal limits. The patient was asymptomatic. Since then blood pressures in clinic have been within normal limits. We will continue to monitor intrapartum and . I have personally examined, evaluated the patient and this note written for and with me, seen and agreed with resident-WILLIAM MODL /[id number] MTDD
[2020-11-26] MEDS ORDERED: EPINEPHrine 1 MG/1 ML Amp ONE (11:28)
--- NOTE | 2020-11-26 12:05 | PCM.PRNOTE ---
- Free Text/Narrative Note: Requested to provide analgesia to full term patient in severe pain. Upon entering the room, patient is sitting on edge of bed complaining of severe abdominal/pelvic pain and discomfort. Procedure was discussed with patient including adverse outcomes and expectations. Pt consented to analgesia, SAB/IT. Pt placed into a proper sitting position. Landmarks for SAB/IT were identified and marked. Hands were washed and appropriate PPE was applied. Back was prepped with betadine x3. A sterile, transparent, fenestrated drape was applied. Excess betadine was removed. Using 3 mL of a 1% lidocaine solution, a skin wheel was placed at the L2/L3 interspace. A 24 ga (4 inch) Pencan spinal needle was inserted until positive for CSF. Negative for heme or paresthesias. Injected sufentanil 15 mcg, and 7.5 mg of a 0.75% bupivacaine solution with an epi wash. Pt was placed left lateral tilt position for approximately 20 minutes. There were zero complications or adverse outcomes. Will continue to monitor. Procedure Date & Time: [id number] 11/26/20
--- NOTE | 2020-11-26 12:26 | OBOUT ---
DATE: 11/26/2020 TIME: 7:15 to 7:34. REASONS FOR NONSTRESS TEST: 1. Intrauterine at 39 and 2/7 weeks, confirmed with 8 and 2/7 weeks' ultrasound. 2. Spontaneous rupture of membranes. 3. GBS negative. 4. Tobacco dependence. 5. Anxiety, on hydroxyzine. 6. G3, P1-0-1-1. NONSTRESS TEST INTERPRETATION: During this time period, heart tone baseline is approximately 130 and at least two 15 x 15 beats per minute accelerations, making this strip reactive as well as reassuring. Tocometer reveals potential 7 to 8 contractions during this time period, not felt by patient as she has had an intrathecal. ASSESSMENT AND PLAN: 1. Nonstress test is reactive and reassuring. 2. Tocometer with contractions. Shortly prior to this, she was evaluated and found to be 6 cm. -1, -2 station, vertex suspected, and 90% effaced. PLAN: We will continue to follow clinically and closely. Please see history and physical done in conjunction with Maggie Hernandez in regard to this patient. At this point in time, we will continue to follow clinically and closely. Pitocin has been started. She is GBS negative and we will re-evaluate in a couple of hours or sooner if need be. [facility] /[id number]
--- NOTE | 2020-11-26 12:59 | PN ---
DATE: 11/26/2020 SUBJECTIVE: Labor. No other somatic complaints. Starting to feel a little bit of pressure . OBJECTIVE: Vital Signs: Heart rate 86 beats per minute, blood pressure 105/53 mmHg. General: Alert, no concerning distress. Abdomen: Gravid, nontender. Heart Tracing: Baseline 120 beats per minute, moderate variability, positive accelerations, early decelerations. [place]: Every 2 to 3 minutes. Pelvic: Normal external genitalia, vulva, vagina. SVE: 6 cm/90% effaced/0 station, vag is spontaneously ruptured with clear fluid. Extremities: Nontender, no concerning edema. ASSESSMENT AND PLAN: Diandra is a 20-year-old, G3, P1-0-1-1 at 39 weeks and 3 days gestational age dated by LMP and confirmed by first-trimester ultrasound, presenting with spontaneous rupture of membrane. 1. Maternal well-being: Doing well. 2. well-being: heart tracing category 1. 3. Labor: Spontaneous rupture of membranes. Progressing. Pitocin for augmentation. IUPC placed and we will continue to titrate up on the Pitocin to reach adequate [place] units of 180 to 220. 4. Group B Streptococcus status positive. Plan: No antibiotics in labor. 5. Pain management: Intrathecal anesthesia completed. 6. Tobacco dependence. 7. Anxiety, on hydroxyzine. seen and agreed-DCW Seen with resident. Patient was personally seen and examined with the resident, Dr. Hernandez. I reviewed the noted scribed on my behalf and necessary changes have been made to reflect my opinion on the history, exam, assessment, and plan [facility] /[id number] MTDD
--- NOTE | 2020-11-26 14:50 | PN ---
DATE: 11/26/2020 SUBJECTIVE: Labor. No other somatic complaints. Feels as though her intrathecal maybe wearing off. Is requesting repeat intrathecal. OBJECTIVE: Vital Signs: Please see vital signs as documented in [employer]. General: Alert, in no concerning distress. Is uncomfortable with each contraction. Abdomen: Gravid, nontender. Heart Tracing: Category 2, baseline 130 beats per minute, moderate variability, positive accelerations, and occasional variable decelerations. [place]: IUPC in place, ronal every 2 minutes. Most recent Coulter units is 180. Pelvic: Normal external genitalia, vulva, and vagina. SVE: 7 cm/95% effaced/zero station. Bag is spontaneously ruptured with clear fluid. Extremities: Nontender, no concerning edema. ASSESSMENT AND PLAN: Diandra is a G3, P1-0-1-1 at 39 weeks and 3 days gestational age (date by last menstrual period), presenting for spontaneous rupture of membranes. 1. Maternal well-being: Good. 2. well-being: heart tracing category 2. 3. Labor: Spontaneous rupture of membranes. Augmenting with Pitocin. We will continue to titrate up for adequate Coulter units of 180 to 220. 4. She is group B Streptococcus negative. Plan, no antibiotics in labor. 5. Pain management. The patient had intrathecal. Is requesting repeat at this time. We will call Anesthesia. 6. Tobacco use in . Most recent ultrasound on 10/19/2020, the fetus' EFW was 54th percentile. 7. Anemia of . Hemoglobin on 11/16/2020 was 11.9. Hemoglobin on admission 10.8. The patient is on iron supplement b.i.d., vitamin C supplement, and vitamins. 8. Growth ultrasound at 20 weeks and 5 days gestational age did not visualize upper lip and spine well. Repeat ultrasound was concerning for cleft lip. The patient was referred to [facility]. Repeat ultrasound showed normal anatomy with no cleft lip or palate. Normal echocardiogram. 9. History of depression. Depression was treated with Zoloft after #2. Her brother had just of suicide while in hospital for delivery. We will monitor for any signs of depression. 10.Elevated blood pressure affecting . On 10/17/2020, blood pressures were 140s/90s on presentation to the clinic. -induced hypertension labs were within normal limits. Patient's blood pressures since admission intrapartum have been within normal limits. We will continue to monitor intrapartum and . Seen with resident. Patient was personally seen and examined with the resident, Dr. Hernandez. I reviewed the noted scribed on my behalf and necessary changes have been made to reflect my opinion on the history, exam, assessment, and plan [facility] /[id number] MTDD
[2020-11-26] MEDS ORDERED: Ibuprofen 800 MG Tab PO PRN (15:50)
[2020-11-26] MEDS ORDERED: Simethicone 80 MG Tab.Chew PO PRN (15:50)
[2020-11-26] MEDS ORDERED: Docusate Sodium 100 MG Cap PO PRN (15:50)
[2020-11-26] MEDS ORDERED: Oxytocin 10 Units/1 ML SDV IM PRN (15:50)
[2020-11-26] MEDS ORDERED: Benzocaine/Menthol 20%-0.5% Spray 56 GM Canister TOP PRN (15:50)
[2020-11-26] MEDS ORDERED: Zolpidem 5 MG Tab PO PRN (15:50)
--- NOTE | 2020-11-26 18:46 | PN ---
DATE: 11/26/2020 SUBJECTIVE: The patient is comfortable, status post her second intrathecal. OBJECTIVE: heart tones in the 130s and felt to be reactive, reassuring. Tocometer reveals contractions every couple of minutes. Pitocin is running. Vaginal exam reveals her to be 9+ cm with lip on the left and anterior region of the cervix felt. ASSESSMENT AND PLAN: Intrauterine at 39/2-7 weeks, confirmed with 8 and 2/7 weeks' ultrasound admitted with spontaneous rupture of membranes, undergone NST, IUPC, and Pitocin augmentation. Group B Streptococcus negative. G3, P1-0-1-1. Nearing 2nd stage of labor. We will continue to follow clinically and closely at this point in time. The patient understands and agrees with the above treatment plan. [facility] /[id number]
[2020-11-27] MEDS ORDERED: Prenatal Multivitamin with Calcium/Folic Acid/Iron Tab PO SCH (09:00)
--- NOTE | 2020-11-27 13:22 | DISCH ---
REASON FOR ADMISSION: Spontaneous rupture of membranes. OBSTETRIC HISTORY: G1: 04/19/2019, 6 weeks 0 days, spontaneous . G2: 05/28/2019, 40 weeks 0 days, spontaneous vaginal delivery of a female, 6 pounds 8 ounces. DELIVERY: Sex: Male. Weight: 3715 g. scores: One minute 8, five minutes 9. PROCEDURES: 1. Intrathecal. 2. Sterile bimanual exam. PROBLEM LIST: 1. G3, P1-0-1-1 at 39 weeks and 3 days gestational age, dated by LMP with spontaneous rupture of membranes. 2. Group B Streptococcus status negative. 3. Tobacco use in . Most recent ultrasound on 10/19/2020 showed EFW of 54th percentile. 4. Anemia of . 5. Growth ultrasound at 20 weeks and 5 days did not show anatomy of upper lip well. Repeat ultrasound concerning for cleft lip. The patient referred to [facility]. Repeat ultrasound showed normal anatomy with no cleft lip or palate. Normal echocardiogram. 6. Hemoglobin on admission was 10.8. The patient is on iron supplement twice daily and is taking vitamin. Clinically asymptomatic. 7. History of depression. Depression treated with Zoloft after second . 8. Elevated blood pressure affecting . On 10/17/2020, blood pressures were 140s/90s on presentation. -induced hypertension laboratories were within normal limits. The patient was asymptomatic. Since then blood pressures in the clinic has been within normal limits. Blood pressures on admission were 118/59. FINAL DIAGNOSES: 1. G3, P2-0-1-2, status post spontaneous vaginal delivery of an 8 pounds 13 ounces male, scores of 8 and 9 at one and five minutes respectively. 2. Tobacco use. 3. Anemia of acute blood loss. Hemoglobin on admission was 10.8. hemoglobin was 9.5. 4. History of depression. We will monitor for any signs or symptoms of depression. 5. Elevated blood pressures affecting . Blood pressures have been within normal limits during this hospital admission. CONSULTS AND REFERRALS: 1. Anesthesia. 2. progress note. SUBJECTIVE: No complaints. Denies chest pain, shortness of breath, nausea, vomiting, fevers, chills, or abdominal pain. Some abdominal tenderness as expected. Ambulating to the commode. Voiding without difficulty. Tolerating oral intake. Lochia appropriate. The patient denies any abnormal bloody vaginal discharge. Pain is well controlled. The patient is successfully every 2 hours for 10 to 30 minutes each breast. OBJECTIVE: Current Vital Signs: Temperature 97.9 F, pulse 78, blood pressure 101/59, respiratory rate 18, and O2 saturation 97. LABORATORY DATA: Hematology: White blood cell count, WBC 12.3; RBC 13.39; hemoglobin 9.5; hematocrit 29.3; MCV 86.4; MCH 28.0; MCHC 32.4; and platelet count 208. PHYSICAL EXAMINATION: General: Alert, in no acute distress with appropriate affect. Cardiovascular: Breathing comfortably on room air. Normal S1, S2 with regular rate and rhythm. Lungs: Clear to auscultation bilaterally. Abdomen: Soft, appropriately tender. Fundus is firm at -2 on the umbilicus. Extremities: Nontender and no concerning edema. No calf pain. ASSESSMENT AND PLAN: Diandra Hamilton is a G3, P2-0-1-2 female, status post spontaneous vaginal delivery. 1. Maternal well being: Meeting milestones. No acute concerns. 2. well being: New born nursery, exclusively at this time. 3. Disposition: Routine cares, advance activity, and discharge home on day #1. 4. Contraception: We will discuss at 6-week visit. PRELIMINARY DISCHARGE MEDICATIONS: This list of medications is preliminary and tentative. Please see after visit summary for the final and accurate medication list. 1. vitamin. 2. Iron supplements twice daily. 3. Vitamin C supplements daily. 4. Hydroxyzine 25 mg q.i.d. as needed for anxiety. HOSPITAL COURSE: The patient presented with spontaneous rupture of membranes. Delivery occurred without significant issue. The patient did require bimanual examination and finger uterine curettage, Pitocin, and 800 mg of Cytotec rectally for blood loss control. EBL of 500 mL. Recovery was uncomplicated. The patient does have anemia of acute blood loss but is asymptomatic from this and is taking iron supplements postdischarge. The patient's mood and affect seem appropriate with no acute concerns. The patient was felt to be discharged home in good condition. DISCHARGE DISPOSITION: Home. FOLLOWUP APPOINTMENTS: 6 weeks visit. Seen with medical student. Patient was personally seen and examined with the medical student practitioner student, Nicolas Arteaga. I reviewed the noted scribed on my behalf and necessary changes have been made to reflect my opinion on the history, exam, assessment, and plan [facility] /[id number] MTDD
[2020-11-27] MEDS ORDERED: EPINEPHrine 1 MG/1 ML Amp ONE ×2 (16:44)
--- NOTE | 2020-11-29 10:20 | DEL ---
DATE: 11/26/2020 PREOPERATIVE DIAGNOSES: 1. -0-1-1 at 39 weeks and 3 days gestational age (dated by last menstrual period, confirmed by first-trimester ultrasound). 2. Spontaneous rupture of membranes. 3. Group B strep negative. 4. Tobacco use in . 5. Anemia of . 6. Growth ultrasound at 20 weeks and 5 days did not visualize upper lip and spine well. Repeat ultrasound was concerning for cleft lip. After [facility] referral and repeat ultrasound, there was normal anatomy with no cleft lip or palate. Normal echocardiogram. 7. History of depression. 8. Elevated blood pressure in the 3rd trimester. On 10/17/2020, blood pressures were 140s over 90s in clinic. -induced hypertension labs were within normal limits. The patient was asymptomatic. Since then, clinic visits, blood pressures have been within normal limits. Blood pressure was normal during the intrapartum period. POSTOPERATIVE DIAGNOSES: 1. -0-1-2 at 39 weeks and 3 days gestational age, status post spontaneous vaginal delivery without complication. 2. Periurethral vaginal abrasions, nonbleeding. No repair required. 3. Group B strep status negative. 4. Tobacco use in . 5. Anemia in . 6. Growth ultrasound at 20 weeks and 5 days did not show anatomy of upper lip well. Repeat ultrasound was concerning for cleft. The patient was referred to [facility]. Repeat ultrasound showed normal anatomy and no cleft lip or palate. Had normal echocardiogram. [place] does not have cleft lip or palate on physical exam . 7. Elevated blood pressure affecting on 10/17/2020, blood pressure were elevated in clinic 140s over 90s. -induced hypertension labs were within normal. The patient was asymptomatic. Since then with clinic visits, the patient's blood pressures have been well controlled. The blood pressures were also well controlled in the intrapartum period. 8. hemorrhage requiring sterile bimanual exam with finger uterine curettage. S/p ancef 2g x1 dose. DELIVERY NOTE: On this date at 1624, this G3, now P2-0-1-2, group B strep negative, delivered a viable male infant weighing 3715 g with score of 8 and 9 at one and five minutes respectively. Delivery was vaginal to a sterile field under intrathecal anesthesia. Position was MAURISIO. Complications from umbilical cord: None. Infant airway was achieved, and then was placed on mom's chest. Cord was clamped and then cut. Complications with delivery: as below Placenta was with 3-vessel cord, delivered spontaneously, intact, and completely. Perineum had bilateral periurethral abrasions that were nonbleeding and did not require repair. 30 units of Pitocin was administered IV after delivery of the placenta. There was persistent bleeding with estimated blood loss of approximately 500 mL. Sterile bimanual exam with finger uterine curretage was completed and uterus was evacuated of any clots and placental tissue. Persistent fundal pressure. Cytotec 800 mg per rectum was placed. Bleeding abated completely. Infant and mother were both recovering well in mother's delivery room. Seen with resident. Patient was personally seen and examined with the Maggie Hernandez. I reviewed the noted scribed on my behalf and necessary changes have been made to reflect my opinion on the history, exam, assessment, and plan [facility] /[id number] MTDD
== END 2020-11-27 16:45 | disposition home or self-care (01) | DRG 806 ==
LOC: EEVIPCON → DL.OBCHECK 03:08 → OBSVTOIN 05:07 → DL.OB 05:07
PROVIDERS: ADMIT Family Medicine; ATTEND Family Medicine
PROC: 10E0XZZ Delivery of Products of Conception, External Approach (ICD-10-PCS; principal; 2020-11-26)
PROC: 3E0R3BZ Introduction of Anesthetic Agent into Spinal Canal, Percutaneous Approach (ICD-10-PCS; 2020-11-26)
DX: O99.02 Anemia complicating childbirth (principal); D62 Acute posthemorrhagic anemia; Z37.0 Single live birth; O72.1 Other immediate postpartum hemorrhage; Z3A.39 39 weeks gestation of pregnancy; O99.345 Other mental disorders complicating the puerperium; F53.0 Postpartum depression; O13.4 Gestational [pregnancy-induced] hypertension without significant proteinuria, complicating childbirth; O99.334 Smoking (tobacco) complicating childbirth; Z20.822 Contact with and (suspected) exposure to COVID-19; F17.200 Nicotine dependence, unspecified, uncomplicated; O99.214 Obesity complicating childbirth; E66.9 Obesity, unspecified; F41.9 Anxiety disorder, unspecified; Z28.82 Immunization not carried out because of caregiver refusal
CPT/HCPCS: 01967; 36415; 59025; 59409; 85027; A9270-GY; J0171; J0690; J2405; J2590; J7120; U0002

== ENCOUNTER 2021-06-24 03:46 | Emergency (ER) | payer OTHER ==
[2021-06-24] MEDS ORDERED: Sodium Chloride 0.9% 1,000 ML IV ONE (04:19)
[2021-06-24] MEDS ORDERED: Ondansetron 4 MG/2 ML SDV IVPUSH ONE (04:20)
--- NOTE | 2021-06-24 04:23 | EDM.PDOC ---
ED HPI GENERAL MEDICAL PROBLEM - General Chief Complaint: Abdominal Pain Stated Complaint: ABDOMINAL LOWER RIGHT PAIN Time Seen by Provider: 06/24/21 04:20 Source of Information: Reports: Patient History Limitations: Reports: No Limitations - History of Present Illness INITIAL COMMENTS - FREE TEXT/NARRATIVE: ED with c/o RLQ pain with onset prior to arrival waking her from sleep. Increased pain with stretching, walking and going over bumpsin road. Nausea no vomiting. LMP 9/12. No fever or chills. No urinary sx. No rior hx of ovarian cysts. - Related Data Allergies Allergy/AdvReac Type Severity Reaction Status Date / Time No Known Drug Intolerances Allergy Other Verified 11/24/20 00:16 mold Allergy Nausea and Uncoded 11/16/20 03:04 Vomiting tb test Allergy Hives Uncoded 11/16/20 03:04 Home Meds: Home Meds Vit with Ca/FA/Iron [ Plus Iron] 1 tab PO DAILY 06/19/19 [History] Acetaminophen [Tylenol] 650 mg PO Q4H PRN tablet 07/30/19 [Rx] Docusate Sodium [Colace] 100 mg PO BID PRN cap 07/30/19 [Rx] Ascorbate Calcium [Vitamin C] 500 mg PO DAILY 11/09/20 [History] Ferrous Sulfate 325 mg PO DAILY 11/09/20 [History] Past Medical History - Past Health History Medical/Surgical History: Denies Medical/Surgical History HEENT History: Reports: Impaired Vision Cardiovascular History: Reports: None Respiratory History: Reports: None Gastrointestinal History: Reports: None Genitourinary History: Reports: None Other Genitourinary History: Trichomonisis- 06/2019 [employer] History: Reports: , Spontaneous Other [employer] History: SAB 04/27/2018 Musculoskeletal History: Reports: None Neurological History: Reports: None Psychiatric History: Reports: Anxiety, Depression Other Psychiatric History: Zoloft pre-preg. Endocrine/Metabolic History: Reports: Obesity/BMI 30+ Hematologic History: Reports: None Immunologic History: Reports: None Oncologic (Cancer) History: Reports: None Dermatologic History: Reports: None - Infectious Disease History Infectious Disease History: Reports: None - Past Surgical History Head Surgeries/Procedures: Reports: None Cardiovascular Surgical History: Reports: None Respiratory Surgical History: Reports: None GI Surgical History: Reports: None Female Surgical History: Reports: None Neurological Surgical History: Reports: None Social & Family History - Family History Family Medical History: No Pertinent Family History - Tobacco Use Tobacco Use Status *Q: Current Every Day Tobacco User Years of Tobacco use: 3 Packs/Tins Daily: 0.4 - Caffeine Use Caffeine Use: Reports: Coffee, Soda ED ROS GENERAL - Review of Systems Review Of Systems: Comprehensive ROS is negative, except as noted in HPI. ED EXAM, GI/ABD - Physical Exam Exam: See Below Exam Limited By: No Limitations General Appearance: Alert, Mild Distress, Obese Eyes: Bilateral: EOMI Ears: Normal External Exam Nose: Normal Inspection Throat/Mouth: Normal Inspection, Normal Voice Head: Normocephalic, Other Neck: Normal Inspection Respiratory/Chest: No Respiratory Distress, Lungs Clear, Normal Breath Sounds Cardiovascular: Normal Peripheral Pulses, Regular Rate, Rhythm GI/Abdominal Exam: Normal Bowel Sounds, Soft, Guarding, Tender (RLQ) Neurological: Alert, Oriented, Normal Cognition Psychiatric: Normal Affect Skin Exam: Warm, Dry, Intact, Normal Color Course - Vital Signs Last Recorded V/S: Last Vital Signs Temp 97.8 F 06/24/21 04:01 Pulse 104 H 06/24/21 04:01 Resp 18 06/24/21 04:01 BP 125/91 H 06/24/21 04:01 Pulse Ox 96 06/24/21 04:01 - Orders/Labs/Meds Labs: Laboratory Tests 06/24/21 06/24/21 06/24/21 Range/Units 04:04 04:10 04:10 WBC 10.5 H (5.0-10.0) 10^3/uL RBC 4.79 (4.2-5.4) 10^6/uL Hgb 13.4 D (12.0-16.0) g/dL Hct 40.6 (37.0-47.0) % MCV 84.8 (80-100) fL MCH 28.0 (27.0-34.0) pg MCHC 33.0 (33.0-35.0) g/dL Plt Count 289 D (150-450) 10^3/uL Neut % (Auto) 64.4 (42.2-75.2) % Lymph % (Auto) 26.2 (20.5-50.1) % [place] % (Auto) 6.5 (2-8) % Eos % (Auto) 2.7 (1.0-3.0) % Baso % (Auto) 0.2 (0.0-1.0) % Sodium 136 (136-145) mmol/L Potassium 3.9 (3.5-5.1) mmol/L Chloride 101 (98-107) mmol/L Carbon Dioxide 28 (21-32) mmol/L Anion Gap 10.9 (7-13) mEq/L BUN 18 (7-18) mg/dL Creatinine 0.94 (0.55-1.02) mg/dL Est Cr Clr Drug Dosing 68.00 mL/min Estimated GFR (MDRD) > 60 BUN/Creatinine Ratio 19.1 (No establ ref range) Glucose 103 H (70-99) mg/dL Lactic Acid (0.4-2.0) mmol/L Calcium 8.8 (8.5-10.1) mg/dL Total Bilirubin 0.5 (0.2-1.0) mg/dL AST 10 L (15-37) U/L ALT 33 (14-59) U/L Alkaline Phosphatase 128 H (46-116) U/L Total Protein 7.4 (6.4-8.2) g/dL Albumin 3.7 (3.4-5.0) g/dL Globulin 3.7 Albumin/Globulin Ratio 1.0 HCG, Qual Negative Urine Color Yellow (YELLOW) Urine Appearance Cloudy (CLEAR) Urine pH 5.5 (5.0-9.0) Ur Specific [place] 1.025 (1.005-1.030) Urine Protein Negative (NEGATIVE) Urine Glucose (UA) Negative (NEGATIVE) Urine Ketones Negative (NEGATIVE) Urine Occult Blood Negative (NEGATIVE) Urine Nitrite Negative (NEGATIVE) Urine Bilirubin Negative (NEGATIVE) Urine Urobilinogen 0.2 (0.2-1.0) mg/dL Ur Leukocyte Esterase Negative (NEGATIVE) 06/24/21 Range/Units 04:10 WBC (5.0-10.0) 10^3/uL RBC (4.2-5.4) 10^6/uL Hgb (12.0-16.0) g/dL Hct (37.0-47.0) % MCV (80-100) fL MCH (27.0-34.0) pg MCHC (33.0-35.0) g/dL Plt Count (150-450) 10^3/uL Neut % (Auto) (42.2-75.2) % Lymph % (Auto) (20.5-50.1) % [place] % (Auto) (2-8) % Eos % (Auto) (1.0-3.0) % Baso % (Auto) (0.0-1.0) % Sodium (136-145) mmol/L Potassium (3.5-5.1) mmol/L Chloride (98-107) mmol/L Carbon Dioxide (21-32) mmol/L Anion Gap (7-13) mEq/L BUN (7-18) mg/dL Creatinine (0.55-1.02) mg/dL Est Cr Clr Drug Dosing mL/min Estimated GFR (MDRD) BUN/Creatinine Ratio (No establ ref range) Glucose (70-99) mg/dL Lactic Acid 0.7 (0.4-2.0) mmol/L Calcium (8.5-10.1) mg/dL Total Bilirubin (0.2-1.0) mg/dL AST (15-37) U/L ALT (14-59) U/L Alkaline Phosphatase (46-116) U/L Total Protein (6.4-8.2) g/dL Albumin (3.4-5.0) g/dL Globulin Albumin/Globulin Ratio HCG, Qual Urine Color (YELLOW) Urine Appearance (CLEAR) Urine pH (5.0-9.0) Ur Specific [place] (1.005-1.030) Urine Protein (NEGATIVE) Urine Glucose (UA) (NEGATIVE) Urine Ketones (NEGATIVE) Urine Occult Blood (NEGATIVE) Urine Nitrite (NEGATIVE) Urine Bilirubin (NEGATIVE) Urine Urobilinogen (0.2-1.0) mg/dL Ur Leukocyte Esterase (NEGATIVE) Meds: Medications Discontinued Medications Generic Name Dose Route Start Last Admin Trade Name Freq PRN Reason Stop Dose Admin Sodium Chloride 1,000 mls @ 999 mls/hr 06/24/21 04:19 06/24/21 04:52 Normal Saline IV 06/24/21 05:19 999 mls/hr .BOLUS ONE Administration Iopamidol 50 ml 06/24/21 04:47 Iopamidol 612 Mg/Ml 50 Ml Sdv IVPUSH 06/24/21 04:48 ONETIME ONE Ondansetron HCl 4 mg 06/24/21 04:20 06/24/21 04:52 Ondansetron 4 Mg/2 Ml Sdv IVPUSH 06/24/21 04:21 4 mg ONETIME ONE Administration Departure - Departure Time of Disposition: 06:54 Disposition: Home, Self-Care 01 Condition: Good Clinical Impression: Abdominal pain Qualifiers: Abdominal location: right lower quadrant Qualified Code(s): R10.31 - Right lower quadrant pain Ovarian cyst Qualifiers: Laterality: right Qualified Code(s): N83.201 - Unspecified ovarian cyst, right side - Discharge Information *PRESCRIPTION DRUG MONITORING PROGRAM REVIEWED*: No *COPY OF PRESCRIPTION DRUG MONITORING REPORT IN PATIENT COREY: No Instructions: Constipation, Adult, [id number], Abdominal Pain, Adult, [id number], Ovarian Cyst, [id number] Forms: ED Department Discharge Additional Instructions: Clinic follow up with primary care next week recheck right lower abdominal pain and abnormal liver CT diet as tolerated urgent follow up severe pain, fever alternate tylenol and ibuprofen every 4 hours as needed for discomfort Sepsis Event Note (ED) - Focused Exam Vital Signs: Vital Signs Temp Pulse Resp BP Pulse Ox 06/24/21 04:01 97.8 F 104 H 18 125/91 H 96
[2021-06-24 04:34] LABS: ANION GAP 10.9 mEq/L (7-13); CHLORIDE,CL 101 mmol/L (98-107); SODIUM,NA 136 mmol/L (136-145)
[2021-06-24] MEDS ORDERED: Iopamidol 612 MG/ML 50 ML SDV IVPUSH ONE (04:47)
--- NOTE | 2021-06-24 06:21 | CT ---
PROCEDURE INFORMATION: Exam: CT Abdomen And Pelvis With Contrast Exam date and time: 06/24/2021 5:14 AM Age: 20 years old Clinical indication: Abdominal pain; Additional info: Rlq abdominal pain nausea TECHNIQUE: Imaging protocol: Computed tomography of the abdomen and pelvis with contrast. Radiation optimization: All CT scans at this facility use at least one of these dose optimization techniques: automated exposure control; mA and/or kV adjustment per patient size (includes targeted exams where dose is matched to clinical indication); or iterative reconstruction. Contrast material: ISOVUE; Contrast volume: 100 ml; Contrast route: INTRAVENOUS (IV); COMPARISON: No relevant prior studies available. FINDINGS: Liver: Approximately 2.4 cm rounded area of increased density in the left lobe of the liver anterior to the gallbladder having no clearly defined margins. Density of the posterior right lobe of the liver 83 HU suggesting no fatty infiltration. Delayed images not obtained. Gallbladder and bile ducts: No calcified gallstones or biliary ductal dilatation. Pancreas: Unremarkable pancreas. Spleen: No splenomegaly. Adrenal glands: No adrenal mass. Kidneys and ureters: No hydronephrosis or apparent renal mass. Stomach and bowel: No wall thickening in the sigmoid colon. No obstruction. Nondistended stomach. Appendix: No appendicitis. Intraperitoneal space: No free air. Vasculature: [id number] right and minimal to mild left ovarian varices. Unremarkable aorta. Lymph nodes: No enlarged nodes. Urinary bladder: Unremarkable as visualized. Reproductive: Extension of the right ovarian varices into and along the right lateral margin of the approximately 2.3 x 3.4 cm right lower quadrant mass measuring 38 HU possibly representing the right ovary since no normal right ovary elsewhere although an ovarian mass not excluded; no fat plane between the right adnexal mass and a short portion of the elongated sigmoid colon. Minimal haziness around part of the right lower quadrant mass. Much smaller left ovary. Normal appearance of the uterus. Bones/joints: A few old minimal compression fractures. Minimal retrolisthesis at L5-S1. Soft tissues: No acute soft tissue finding. IMPRESSION: 1. Enlarged right ovary or a right ovarian mass measuring 38 HU. Bilateral ovarian varices. 2. Approximately 2.4 cm rounded area of increased density in the inferior left lobe of the liver raising the possibility of an enhancing mass. Further evaluation with non-emergent liver MRI recommended. 3. No appendicitis. Other findings detailed above.
[2021-06-24] MEDS ORDERED: Ketorolac 30 MG/ML SDV IVPUSH ONE (06:57)
== END 2021-06-24 07:14 | disposition home or self-care (01) ==
LOC: DL.ED 03:46
DX: N83.201 Unspecified ovarian cyst, right side (principal); E66.9 Obesity, unspecified; Z68.37 Body mass index [BMI] 37.0-37.9, adult; Z72.0 Tobacco use; Z91.048 Other nonmedicinal substance allergy status
CPT/HCPCS: 36415; 74177; 80053; 81003; 83605; 84703; 85025; 96374; 99284; J2405; J7030; Q9967

== ENCOUNTER 2021-08-16 16:41 | Emergency (ER) | payer OTHER ==
[2021-08-16 17:30] LABS: AMPHETAMINES,URINE NEGATIVE (NEGATIVE); BARBITURATES,URINE NEGATIVE (NEGATIVE); BENZODIAZEPINE,URINE NEGATIVE (NEGATIVE); MDMA (ECSTASY), URINE NEGATIVE (NEGATIVE); METHADONE,URINE NEGATIVE (NEGATIVE); METHAMPHETAMINES,URINE NEGATIVE (NEGATIVE); OPIATES,URINE NEGATIVE (NEGATIVE); OXYCODONE,URINE NEGATIVE (NEGATIVE); PHENCYCLIDINE,URINE NEGATIVE (NEGATIVE); TCA,URINE NEGATIVE (NEGATIVE)
[2021-08-16 17:34] LABS: ANION GAP 14.5 mEq/L (7-13); CHLORIDE,CL 102 mmol/L (98-107); SODIUM,NA 138 mmol/L (136-145)
--- NOTE | 2021-08-16 17:43 | EDM.PDOC ---
ED HPI GENERAL MEDICAL PROBLEM - General Chief Complaint: Abdominal Pain Stated Complaint: STOMACH PAIN Time Seen by Provider: 08/16/21 17:30 Source of Information: Reports: Patient History Limitations: Reports: No Limitations - History of Present Illness INITIAL COMMENTS - FREE TEXT/NARRATIVE: This 20 yo female patient reports to the ED with diffuse abdominal pain over the past 2 days. The patient reports her pain is in the upper abdomen. The patient reports she had eaten cereal prior to symptom onset. The patient has not had similar symptoms in the past. The patient reports she was seen in [facility] earlier today and was started on Omeprazole with no symptom improvement. The patient reports she did not have any lab work done during that visit. Onset Date: 08/14/21 Duration: Constant Location: Reports: Abdomen Quality: Reports: Other Severity: Moderate Improves with: Reports: None Worsens with: Reports: None Context: Reports: Other Associated Symptoms: Reports: Nausea/Vomiting Treatments DIRECTOR OF PRIMARY CARE: Reports: Other Medication(s) - Related Data Allergies Allergy/AdvReac Type Severity Reaction Status Date / Time No Known Drug Intolerances Allergy Other Verified 11/24/20 00:16 mold Allergy Nausea and Uncoded 11/16/20 03:04 Vomiting tb test Allergy Hives Uncoded 11/16/20 03:04 Home Meds: Home Meds Vit with Ca/FA/Iron [ Plus Iron] 1 tab PO DAILY 06/19/19 [History] Acetaminophen [Tylenol] 650 mg PO Q4H PRN tablet 07/30/19 [Rx] Docusate Sodium [Colace] 100 mg PO BID PRN cap 07/30/19 [Rx] Ascorbate Calcium [Vitamin C] 500 mg PO DAILY 11/09/20 [History] Ferrous Sulfate 325 mg PO DAILY 11/09/20 [History] Past Medical History - Past Health History Medical/Surgical History: Denies Medical/Surgical History HEENT History: Reports: Impaired Vision Cardiovascular History: Reports: None Respiratory History: Reports: None Gastrointestinal History: Reports: None Genitourinary History: Reports: None Other Genitourinary History: Trichomonisis- 06/2019 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 Endocrine/Metabolic History: Reports: Obesity/BMI 30+ Hematologic History: Reports: None Immunologic History: Reports: None Oncologic (Cancer) History: Reports: None Dermatologic History: Reports: None - Infectious Disease History Infectious Disease History: Reports: None - Past Surgical History Head Surgeries/Procedures: Reports: None Cardiovascular Surgical History: Reports: None Respiratory Surgical History: Reports: None GI Surgical History: Reports: None Female Surgical History: Reports: None Neurological Surgical History: Reports: None Social & Family History - Family History Family Medical History: No Pertinent Family History - Caffeine Use Caffeine Use: Reports: Coffee, Soda ED ROS GENERAL - Review of Systems Review Of Systems: Comprehensive ROS is negative, except as noted in HPI. ED EXAM, GI/ABD - Physical Exam Exam: See Below Exam Limited By: No Limitations General Appearance: Alert, WD/WN, Moderate Distress, Obese Eyes: Bilateral: Normal Appearance, EOMI Ears: Normal External Exam, Normal Canal, Hearing Grossly Normal, Normal TMs Nose: Normal Inspection, Normal Mucosa, No Blood Throat/Mouth: Normal Inspection, Normal Lips, Normal Teeth, Normal Gums, Normal Oropharynx, Normal Voice, No Airway Compromise Head: Atraumatic, Normocephalic Neck: Normal Inspection, Supple, Non-Tender, Full Range of Motion Respiratory/Chest: No Respiratory Distress, Lungs Clear, Normal Breath Sounds, No Accessory Muscle Use, Chest Non-Tender Cardiovascular: Normal Peripheral Pulses, Regular Rate, Rhythm, No Edema, No Gallop, No JVD, No Murmur, No Rub GI/Abdominal Exam: Normal Bowel Sounds, Soft, No Organomegaly, No Distention, No Abnormal Bruit, No Mass, Pelvis Stable, Tender (diffuse tenderness) (Female) Exam: Deferred Rectal (Female) Exam: Deferred Back Exam: Normal Inspection, Full Range of Motion, NT Extremities: Normal Inspection, Normal Range of Motion, Non-Tender, Normal Capillary Refill, No Pedal Edema Neurological: Alert, Oriented, CN II-XII Intact, Normal Cognition, Normal Gait, Normal Reflexes, No Motor/Sensory Deficits Psychiatric: Normal Affect, Normal Mood Lymphatic: No Adenopathy Course - Vital Signs Last Recorded V/S: Last Vital Signs Temp 97.2 F 08/16/21 17:07 Pulse 78 08/16/21 17:07 Resp 16 08/16/21 17:07 BP 144/60 H 08/16/21 17:07 Pulse Ox 99 08/16/21 17:07 - Orders/Labs/Meds Orders: Active Orders 24 hr Category Date Time Status CULTURE BLOOD [BC] Stat Lab 08/16/21 16:57 Ordered Labs: Laboratory Tests 08/16/21 08/16/21 08/16/21 Range/Units 16:50 16:50 16:50 WBC (5.0-10.0) 10^3/uL RBC (4.2-5.4) 10^6/uL Hgb (12.0-16.0) g/dL Hct (37.0-47.0) % MCV (80-100) fL MCH (27.0-34.0) pg MCHC (33.0-35.0) g/dL Plt Count (150-450) 10^3/uL Neut % (Auto) (42.2-75.2) % Lymph % (Auto) (20.5-50.1) % [place] % (Auto) (2-8) % Eos % (Auto) (1.0-3.0) % Baso % (Auto) (0.0-1.0) % Sodium (136-145) mmol/L Potassium (3.5-5.1) mmol/L Chloride (98-107) mmol/L Carbon Dioxide (21-32) mmol/L Anion Gap (7-13) mEq/L BUN (7-18) mg/dL Creatinine (0.55-1.02) mg/dL Est Cr Clr Drug Dosing Estimated GFR (MDRD) BUN/Creatinine Ratio (No establ ref range) Glucose (70-99) mg/dL Lactic Acid (0.4-2.0) mmol/L Calcium (8.5-10.1) mg/dL Magnesium (1.8-2.4) mg/dL Total Bilirubin (0.2-1.0) mg/dL AST (15-37) U/L ALT (14-59) U/L Alkaline Phosphatase (46-116) U/L Total Protein (6.4-8.2) g/dL Albumin (3.4-5.0) g/dL Globulin Albumin/Globulin Ratio Amylase (25-115) U/L Lipase (73-393) U/L Urine Color Dark yellow (YELLOW) Urine Appearance Clear (CLEAR) Urine pH 6.0 (5.0-9.0) Ur Specific [place] >= 1.030 (1.005-1.030) Urine Protein 30 H (NEGATIVE) Urine Glucose (UA) Negative (NEGATIVE) Urine Ketones Negative (NEGATIVE) Urine Occult Blood Negative (NEGATIVE) Urine Nitrite Negative (NEGATIVE) Urine Bilirubin Small H (NEGATIVE) Urine Urobilinogen 0.2 (0.2-1.0) mg/dL Ur Leukocyte Esterase Negative (NEGATIVE) Urine RBC Not seen (0-5) /HPF Urine WBC 0-5 (0-5/HPF) /HPF Ur Epithelial Cells Many H (NOT SEEN) /HPF Urine Bacteria Few (0-FEW/HPF) /HPF Urine Mucus Many H (NOT SEEN) /LPF Urine HCG, Qual Negative Urine Opiates Screen Negative (NEGATIVE) Ur Oxycodone Screen Negative (NEGATIVE) Urine Methadone Screen Negative (NEGATIVE) Ur Barbiturates Screen Negative (NEGATIVE) U Tricyclic Antidepress Negative (NEGATIVE) Ur Phencyclidine Scrn Negative (NEGATIVE) Ur Amphetamine Screen Negative (NEGATIVE) U Methamphetamines Scrn Negative (NEGATIVE) Urine MDMA Screen Negative (NEGATIVE) U Benzodiazepines Scrn Negative (NEGATIVE) Urine Cocaine Screen Negative (NEGATIVE) U Marijuana (THC) Screen Negative (NEGATIVE) Influenza Type A RNA (NEGATIVE) Influenza Type B RNA (NEGATIVE) SARS-CoV-2 RNA (MARISSA) (NEGATIVE) 08/16/21 08/16/21 08/16/21 Range/Units 16:59 17:05 17:05 WBC 7.6 (5.0-10.0) 10^3/uL RBC 5.30 (4.2-5.4) 10^6/uL Hgb 14.8 (12.0-16.0) g/dL Hct 44.6 (37.0-47.0) % MCV 84.2 (80-100) fL MCH 27.9 (27.0-34.0) pg MCHC 33.2 (33.0-35.0) g/dL Plt Count 213 D (150-450) 10^3/uL Neut % (Auto) 87.2 H (42.2-75.2) % Lymph % (Auto) 7.2 L (20.5-50.1) % [place] % (Auto) 5.2 (2-8) % Eos % (Auto) 0.4 L (1.0-3.0) % Baso % (Auto) 0.0 (0.0-1.0) % Sodium 138 (136-145) mmol/L Potassium 3.5 (3.5-5.1) mmol/L Chloride 102 (98-107) mmol/L Carbon Dioxide 25 (21-32) mmol/L Anion Gap 14.5 H (7-13) mEq/L BUN 11 (7-18) mg/dL Creatinine 0.93 (0.55-1.02) mg/dL Est Cr Clr Drug Dosing TNP Estimated GFR (MDRD) > 60 BUN/Creatinine Ratio 11.8 (No establ ref range) Glucose 115 H (70-99) mg/dL Lactic Acid (0.4-2.0) mmol/L Calcium 8.8 (8.5-10.1) mg/dL Magnesium 1.6 L (1.8-2.4) mg/dL Total Bilirubin 1.4 H (0.2-1.0) mg/dL AST 13 L (15-37) U/L ALT 38 (14-59) U/L Alkaline Phosphatase 152 H (46-116) U/L Total Protein 7.8 (6.4-8.2) g/dL Albumin 3.9 (3.4-5.0) g/dL Globulin 3.9 Albumin/Globulin Ratio 1.0 Amylase 25 (25-115) U/L Lipase 54 L (73-393) U/L Urine Color (YELLOW) Urine Appearance (CLEAR) Urine pH (5.0-9.0) Ur Specific [place] (1.005-1.030) Urine Protein (NEGATIVE) Urine Glucose (UA) (NEGATIVE) Urine Ketones (NEGATIVE) Urine Occult Blood (NEGATIVE) Urine Nitrite (NEGATIVE) Urine Bilirubin (NEGATIVE) Urine Urobilinogen (0.2-1.0) mg/dL Ur Leukocyte Esterase (NEGATIVE) Urine RBC (0-5) /HPF Urine WBC (0-5/HPF) /HPF Ur Epithelial Cells (NOT SEEN) /HPF Urine Bacteria (0-FEW/HPF) /HPF Urine Mucus (NOT SEEN) /LPF Urine HCG, Qual Urine Opiates Screen (NEGATIVE) Ur Oxycodone Screen (NEGATIVE) Urine Methadone Screen (NEGATIVE) Ur Barbiturates Screen (NEGATIVE) U Tricyclic Antidepress (NEGATIVE) Ur Phencyclidine Scrn (NEGATIVE) Ur Amphetamine Screen (NEGATIVE) U Methamphetamines Scrn (NEGATIVE) Urine MDMA Screen (NEGATIVE) U Benzodiazepines Scrn (NEGATIVE) Urine Cocaine Screen (NEGATIVE) U Marijuana (THC) Screen (NEGATIVE) Influenza Type A RNA Negative (NEGATIVE) Influenza Type B RNA Negative (NEGATIVE) SARS-CoV-2 RNA (MARISSA) Negative (NEGATIVE) 08/16/21 Range/Units 17:05 WBC (5.0-10.0) 10^3/uL RBC (4.2-5.4) 10^6/uL Hgb (12.0-16.0) g/dL Hct (37.0-47.0) % MCV (80-100) fL MCH (27.0-34.0) pg MCHC (33.0-35.0) g/dL Plt Count (150-450) 10^3/uL Neut % (Auto) (42.2-75.2) % Lymph % (Auto) (20.5-50.1) % [place] % (Auto) (2-8) % Eos % (Auto) (1.0-3.0) % Baso % (Auto) (0.0-1.0) % Sodium (136-145) mmol/L Potassium (3.5-5.1) mmol/L Chloride (98-107) mmol/L Carbon Dioxide (21-32) mmol/L Anion Gap (7-13) mEq/L BUN (7-18) mg/dL Creatinine (0.55-1.02) mg/dL Est Cr Clr Drug Dosing Estimated GFR (MDRD) BUN/Creatinine Ratio (No establ ref range) Glucose (70-99) mg/dL Lactic Acid 1.0 (0.4-2.0) mmol/L Calcium (8.5-10.1) mg/dL Magnesium (1.8-2.4) mg/dL Total Bilirubin (0.2-1.0) mg/dL AST (15-37) U/L ALT (14-59) U/L Alkaline Phosphatase (46-116) U/L Total Protein (6.4-8.2) g/dL Albumin (3.4-5.0) g/dL Globulin Albumin/Globulin Ratio Amylase (25-115) U/L Lipase (73-393) U/L Urine Color (YELLOW) Urine Appearance (CLEAR) Urine pH (5.0-9.0) Ur Specific [place] (1.005-1.030) Urine Protein (NEGATIVE) Urine Glucose (UA) (NEGATIVE) Urine Ketones (NEGATIVE) Urine Occult Blood (NEGATIVE) Urine Nitrite (NEGATIVE) Urine Bilirubin (NEGATIVE) Urine Urobilinogen (0.2-1.0) mg/dL Ur Leukocyte Esterase (NEGATIVE) Urine RBC (0-5) /HPF Urine WBC (0-5/HPF) /HPF Ur Epithelial Cells (NOT SEEN) /HPF Urine Bacteria (0-FEW/HPF) /HPF Urine Mucus (NOT SEEN) /LPF Urine HCG, Qual Urine Opiates Screen (NEGATIVE) Ur Oxycodone Screen (NEGATIVE) Urine Methadone Screen (NEGATIVE) Ur Barbiturates Screen (NEGATIVE) U Tricyclic Antidepress (NEGATIVE) Ur Phencyclidine Scrn (NEGATIVE) Ur Amphetamine Screen (NEGATIVE) U Methamphetamines Scrn (NEGATIVE) Urine MDMA Screen (NEGATIVE) U Benzodiazepines Scrn (NEGATIVE) Urine Cocaine Screen (NEGATIVE) U Marijuana (THC) Screen (NEGATIVE) Influenza Type A RNA (NEGATIVE) Influenza Type B RNA (NEGATIVE) SARS-CoV-2 RNA (MARISSA) (NEGATIVE) Meds: Medications Discontinued Medications Generic Name Dose Route Start Last Admin Trade Name Freq PRN Reason Stop Dose Admin Al Hydroxide/Mg Hydroxide 30 ml 08/16/21 18:29 08/16/21 18:32 Gi Cocktail Oral Solution 30 Ml PO 08/16/21 18:30 30 ml ONETIME ONE Administration Departure - Departure Time of Disposition: 19:29 Disposition: Home, Self-Care 01 Condition: Fair Clinical Impression: Gastroenteritis - Discharge Information *PRESCRIPTION DRUG MONITORING PROGRAM REVIEWED*: Not Applicable *COPY OF PRESCRIPTION DRUG MONITORING REPORT IN PATIENT COREY: Not Applicable Forms: ED Department Discharge Care Plan Goals: The patient was advised of the examination and lab results during the visit. The patient was given an oral GI Cocktail while in the ED. If the patient has any additional symptoms or concerns, the patient should either return to the emergency department or visit her primary care facility. Sepsis Event Note (ED) - Evaluation Sepsis Screening Result: No Definite Risk - Focused Exam Vital Signs: Vital Signs Temp Pulse Resp BP Pulse Ox 08/16/21 17:07 97.2 F 78 16 144/60 H 99 - My Orders Last 24 Hours: My Active Orders 08/16/21 16:57 CULTURE BLOOD [BC] Stat - Assessment/Plan Last 24 Hours: My Active Orders 08/16/21 16:57 CULTURE BLOOD [BC] Stat
[2021-08-16 18:21] LABS: CORONAVIRUS COVID-19 NAA NEGATIVE (NEGATIVE)
[2021-08-16] MEDS ORDERED: GI Cocktail Oral Solution 30 ML PO ONE (18:29)
== END 2021-08-16 18:47 | disposition home or self-care (01) ==
LOC: DL.ED 16:41
DX: K52.9 Noninfective gastroenteritis and colitis, unspecified (principal); E66.9 Obesity, unspecified; Z68.36 Body mass index [BMI] 36.0-36.9, adult; Z91.048 Other nonmedicinal substance allergy status; Z79.899 Other long term (current) drug therapy; Z20.822 Contact with and (suspected) exposure to COVID-19
CPT/HCPCS: 0240U; 36415; 80053; 80305; 81001; 81025; 82150; 83605; 83690; 83735; 85025; 87040; 99284; A9270

== ENCOUNTER 2022-04-05 11:16 | Emergency (ER) | payer SELFPAY ==
[2022-04-05] MEDS ORDERED: GI Cocktail Oral Solution 30 ML PO ONE (12:06)
[2022-04-05 12:30] LABS: AMPHETAMINES,URINE NEGATIVE (NEGATIVE); BARBITURATES,URINE NEGATIVE (NEGATIVE); BENZODIAZEPINE,URINE NEGATIVE (NEGATIVE); MDMA (ECSTASY), URINE NEGATIVE (NEGATIVE); METHADONE,URINE NEGATIVE (NEGATIVE); METHAMPHETAMINES,URINE NEGATIVE (NEGATIVE); OPIATES,URINE NEGATIVE (NEGATIVE); OXYCODONE,URINE NEGATIVE (NEGATIVE); PHENCYCLIDINE,URINE NEGATIVE (NEGATIVE); TCA,URINE NEGATIVE (NEGATIVE)
== END 2022-04-05 12:57 | disposition home or self-care (01) ==
LOC: DL.ED 11:16
DX: N30.00 Acute cystitis without hematuria (principal); F17.210 Nicotine dependence, cigarettes, uncomplicated; E66.9 Obesity, unspecified; Z68.38 Body mass index [BMI] 38.0-38.9, adult; Z91.048 Other nonmedicinal substance allergy status; Z79.899 Other long term (current) drug therapy
CPT/HCPCS: 80305; 81001; 81025; 87086; 99284; A9270

== ENCOUNTER 2024-03-02 02:55 | Emergency (ER) | payer BC, MEDICAID ==
[2024-03-02 04:02] LABS: APPEARANCE,URINE CLEAR (CLEAR); BILIRUBIN,URINE NEGATIVE (NEGATIVE); COLOR,URINE YELLOW (YELLOW); GLUCOSE,URINE NEGATIVE (NEGATIVE); KETONES,URINE NEGATIVE (NEGATIVE); LEUKOCYTE ESTERASE,URINE NEGATIVE (NEGATIVE); NITRITE,URINE NEGATIVE (NEGATIVE); OCCULT BLOOD,URINE NEGATIVE (NEGATIVE); PH,URINE 5.5 (5.0-9.0); PROTEIN,URINE NEGATIVE (NEGATIVE); UROBILINOGEN,URINE 0.2 mg/dL (0.2-1.0)
[2024-03-02 04:11] LABS: BASOPHILS PERCENT AUTO 0.2 % (0.0-1.0); EOSINOPHILS PERCENT AUTO 0.9 % (1.0-3.0); HEMOGLOBIN 13.2 g/dL (12.0-16.0); LYMPHOCYTES PERCENT AUTO 26.6 % (20.5-50.1); MEAN CORPUSCULAR HEMOGLOBIN 28.1 pg (27.0-34.0); MEAN CORPUSCULAR VOLUME 85.3 fL (80-100); MONOCYTES PERCENT AUTO 5.4 % (2-8); NEUTROPHILS PERCENT AUTO 66.9 % (42.2-75.2); PLATELET COUNT,PLT 242 10^3/uL (150-450); RED BLOOD CELL COUNT 4.69 10^6/uL (4.2-5.4); WHITE BLOOD CELL COUNT,WBC 9.7 10^3/uL (5.0-10.0)
[2024-03-02] MEDS: Sodium Chloride 0.9% 1,000 ML IV ONE (04:26)
[2024-03-02 04:35] LABS: A/G RATIO 0.9; ALBUMIN 3.6 g/dL (3.4-5.0); ANION GAP 11.9 mEq/L (7-13); BILIRUBIN TOTAL 0.7 mg/dL (0.2-1.0); BUN/CREATININE RATIO 19.8 (No establ ref range); CALCIUM 8.8 mg/dL (8.5-10.1); CREATININE 0.96 mg/dL (0.55-1.02); EST CRCL DRUG DOSING (CG) 64.91 mL/min; POTASSIUM,K 3.9 mmol/L (3.5-5.1); PROTEIN TOTAL,TP 7.4 g/dL (6.4-8.2)
== END 2024-03-02 05:36 | disposition home or self-care (01) ==
LOC: DL.ED 02:55
DX: R10.2 Pelvic and perineal pain (principal); Z79.899 Other long term (current) drug therapy
CPT/HCPCS: 36415; 80053; 81003; 84702; 85025; 96360; 99284; J7030